=== PATIENT | male | born 1935 | race Caucasian/White ===

== ENCOUNTER 2017-07-28 07:12 | Day surgery (SDC) | payer MEDICARE, BC ==
[2017-07-26 15:16] VITALS: BMI 33.2
[~2017-07-28 07:12] MED LIST: LACTATED RINGERS 1,000 ML IV SCH; LIDOCAINE 1% 20 ML VIAL (10MG/ML) FOR IV START INTRADERMA PRN
[2017-07-28 07:51] VITALS: RESP 18; TEMP 97
[2017-07-28 07:52] LABS: Glucose,Whole Blood 85 mg/dL (75-99)
[2017-07-28] MEDS ORDERED: LACTATED RINGERS 1,000 ML IV ONE (07:52)
[2017-07-28] MEDS ORDERED: PROPOFOL 10 MG/ML 20 ML VIAL IV ONE (08:02)
[2017-07-28] MEDS ORDERED: LIDOCAINE 1% INJ 10MG/ML (20 ML MDV) ONE (08:02)
--- NOTE | 2017-07-28 08:34 | P.PCN ---
Date of Procedure: 07/28/17 Procedure(s) Performed: Brief history: Patient is a pleasant 82-year-old white male scheduled for an elective upper endoscopy as well as colonoscopy as a part of evaluation of abdominal pain, Hemoccult positive stool and change in bowel habits. He also has prior history of colon polyps. Procedure performed: Esophagogastroduodenoscopy and biopsy Colonoscopy with snare polypectomy Preoperative diagnosis: Abdominal pain, change in bowel habits And history of colon polyps Anesthesia: MAC Procedure: After informed consent was obtained from the patient was brought into the endoscopy unit and IV sedation was administered by anesthesia under continuous monitoring. Initially upper endoscopy was done. The Olympus GF 160 video endoscope was inserted inserted into the mouth and esophagus intubated without any difficulty and was gradually advanced into the stomach and duodenum and carefully examined. The bulb and second part of the duodenum appeared normal. The scope was then withdrawn into the stomach adequately insufflated with air and upon careful examination the antrum had mild gastritis and biopsies were done from this area. There were multiple polyps noted in the gastric body measuring 5 mm in sizes which where biopsied. The rest of the body, cardia and fundus appeared normal. The scope was then withdrawn into the esophagus. The GE junction was located at 40 cm to the incisors. It appeared regular with no erythema erosions or ulcerations. Rest of the esophagus appeared normal. Patient tolerated the procedure well. At this time the patient continued to remain sedation. Initial digital rectal examination was normal. Olympus CF 160 video colonoscope was then inserted into the rectum and gradually advanced to the cecum without any difficulty. Careful examination was performed as the scope was gradually being withdrawn. The prep was excellent. The cecum, appeared normal. In the setting colon there was a 5 mm polyp removed by snare polypectomy. The transverse colon there were total of 5 polyps measuring between 5 mm to 7 mm in size removed by snare polypectomy. In the descending colon there was a 5 mm polyp removed by snare polypectomy. The rest of the ascending colon, transverse colon, descending colon, sigmoid colon and rectum appeared normal. Moderate left sided diverticulosis seen. Retroflexion was performed in the rectum and no lesions were noted. Patient tolerated the procedure well. Impression: 1. Upper endoscopy revealed mild antral gastritis and gastric polyps. 2. Colonoscopy revealed: a) 5 mm ascending colon polyp status post polypectomy b) 5 polyps in the transverse colon measuring between 5 mm to 7 mm status post polypectomy c) 5 mm sigmoid colon polyp serous was snare polypectomy d) moderate left-sided diverticulosis. Recommendations: Findings of this examination were discussed with the patient as well as his family. He was advised to follow with the biopsy results. If the biopsy shows tubular adenoma, he can have a repeat colonoscopy in 3 years
[2017-07-28 08:36] VITALS: PULSE 60
[2017-07-28 08:52] VITALS: BP 112/67
== END 2017-07-28 09:41 | disposition home or self-care (01) ==
LOC: ORWHC2ENDO 07:12
PROVIDERS: ATTEND Internal Medicine Gastroenterology
DX: K29.50 Unspecified chronic gastritis without bleeding (principal); D12.3 Benign neoplasm of transverse colon; K31.7 Polyp of stomach and duodenum; K63.5 Polyp of colon; K57.30 Diverticulosis of large intestine without perforation or abscess without bleeding; K21.9 Gastro-esophageal reflux disease without esophagitis; I25.10 Atherosclerotic heart disease of native coronary artery without angina pectoris; I10 Essential (primary) hypertension; I49.9 Cardiac arrhythmia, unspecified; I48.91 Unspecified atrial fibrillation; Z79.01 Long term (current) use of anticoagulants; I25.2 Old myocardial infarction; E78.5 Hyperlipidemia, unspecified; E11.9 Type 2 diabetes mellitus without complications; Z79.84 Long term (current) use of oral hypoglycemic drugs; Z79.891 Long term (current) use of opiate analgesic; Z79.899 Other long term (current) drug therapy
CPT/HCPCS: 88305; 88342; 45385; 43239; J2001; J2704

== ENCOUNTER → 2017-11-19 | Outpatient (CLI) | payer MEDICARE, BC ==
--- NOTE | 2017-11-19 11:38 | CT ---
EXAMINATION TYPE: CT lumbar spine wo con DATE OF EXAM: 11/19/2017 11:10 AM COMPARISON: NONE HISTORY: Low back pain CT DLP: 1221.6 mGycm Automated exposure control for dose reduction was used. Unenhanced CT of the lumbar spine was performed. Bone and soft tissue window settings are submitted as well as coronal and sagittal reconstructions. FINDINGS: The lumbar vertebral bodies maintain normal vertebral body heights. Grade 1 anterolisthesis of L5 and S1 is seen without pars interarticularis defects, likely degenerative in nature. Moderate multilevel degenerative disc disease is seen with bridging anterior osteophytes, facet arthropathy, interverteb ral disc space narrowing, and endplate sclerosis. No evidence of acute fracture or malalignment. Mild fusiform ectasia of the infrarenal abdominal aorta without aneurysm is seen at the level of the L3-L4 intervertebral disc space. This measures 2.5 x 2.5 x 2.4 cm in transverse by anterior posterior by craniocaudal dimension. Moderate calcific atheromatous changes are seen of the abdominal aorta an d its branches. Asymmetric moderate left greater than right sacroiliac joint sclerosis is also seen, likely degenerative in nature. L1-L2: Mild facet arthropathy is seen. There is a broad-based disc bulge without significant spinal c anal stenosis or neural foraminal narrowing. L2-L3: There is a broad-based disc bulge, facet arthropathy, and ligamentum flavum buckling creating moderate bilateral neural foraminal narrowing and mild spinal canal stenosis. L3-L4: There is a large broad-based disc bulge, facet arthropathy, and ligamentum flavum buckling yazmin t create moderate to severe bilateral neural foraminal narrowing, left greater than right, and modera te spinal canal stenosis. L4-L5: There is a large broad-based disc bulge, facet arthropathy, and ligamentum flavum buckling yazmin t create severe spinal canal stenosis and moderate to severe bilateral neural foraminal narrowing. L5-S1: There is disc uncovering secondary to the anterolisthesis of L5 on S1. There is also a broad-b ased disc bulge and facet arthropathy that result in moderate to severe bilateral neural foraminal na rrowing and mild spinal canal stenosis. IMPRESSION: 1. No evidence of acute fracture of the lumbar spine. 2. Grade 1 anterolisthesis of L5 on S1, likely degenerative in nature without pars interarticularis d efects. 3. Moderate to severe degenerative disc disease of the lumbar spine resulting in multilevel spinal ca nal stenosis in variable degrees of neural foraminal narrowing as described above. Note evaluation of disc herniation is limited on CT and could be evaluated with MRI if clinically indicated. 4. Fusiform infrarenal abdominal aortic ectasia without aneurysm measuring up to 2.5 cm.
== END | disposition home or self-care (01) ==
LOC: RADCTMAIN 10:38
PROVIDERS: ATTEND Physical Medicine & Rehabilitation
DX: M48.061 Spinal stenosis, lumbar region without neurogenic claudication (principal); M99.73 Connective tissue and disc stenosis of intervertebral foramina of lumbar region; M43.17 Spondylolisthesis, lumbosacral region; M51.37 Other intervertebral disc degeneration, lumbosacral region; G60.9 Hereditary and idiopathic neuropathy, unspecified; E11.9 Type 2 diabetes mellitus without complications; Z79.01 Long term (current) use of anticoagulants; Z95.0 Presence of cardiac pacemaker
CPT/HCPCS: 72131

== ENCOUNTER → 2017-12-13 | Outpatient (CLI) | payer MEDICARE, BC ==
[2017-12-13 09:34] LABS: INR 1.2 (<1.2); Partial Thromboplastin Time 25.7 sec (22.0-30.0); Prothrombin Time 11.8 sec (9.0-12.0)
== END | disposition home or self-care (01) ==
LOC: LABWHC1 08:57
PROVIDERS: ATTEND Physical Medicine & Rehabilitation
DX: M54.5 Low back pain (principal); G60.9 Hereditary and idiopathic neuropathy, unspecified; M47.817 Spondylosis without myelopathy or radiculopathy, lumbosacral region; M43.16 Spondylolisthesis, lumbar region; M48.062 Spinal stenosis, lumbar region with neurogenic claudication; R20.2 Paresthesia of skin; M54.16 Radiculopathy, lumbar region; E11.9 Type 2 diabetes mellitus without complications; Z79.01 Long term (current) use of anticoagulants; Z95.0 Presence of cardiac pacemaker
CPT/HCPCS: 36415; 85610; 85730

== ENCOUNTER → 2018-03-04 | Outpatient (CLI) | payer MEDICARE, BC ==
[2018-03-04 13:03] LABS: HCT 42.6 % (39.0-53.0); HGB 13.6 gm/dL (13.0-17.5); Hypochromasia Slight; MCH 30.4 pg (25.0-35.0); Platelet Count 292 k/uL (150-450); RBC 4.48 m/uL (4.30-5.90); RDW 13.8 % (11.5-15.5); WBC 9.2 k/uL (3.8-10.6)
--- NOTE | 2018-03-04 13:04 | XR ---
EXAMINATION TYPE: XR chest 2V DATE OF EXAM: 03/04/2018 COMPARISON: 10/10/2014 TECHNIQUE: PA and lateral views submitted. HISTORY: Soreness of breath FINDINGS: The lungs are clear and there is no pneumothorax, pleural effusion, or focal pneumonia. Cardia tosha ly and cardiac device seen with postoperative changes. Arthropathy of the shoulders. Coarsened inters titium noted. Degenerative and hypertrophic change of the spine. IMPRESSION: 1. 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
[2018-03-04 13:15] LABS: Albumin 4.2 g/dL (3.5-5.0); Calcium 9.4 mg/dL (8.4-10.2); Potassium 4.7 mmol/L (3.5-5.1); Total Bilirubin 0.9 mg/dL (0.2-1.3); Total Protein 6.8 g/dL (6.3-8.2)
== END | disposition home or self-care (01) ==
LOC: RADXRMAIN 12:17
PROVIDERS: ATTEND Internal Medicine Cardiovascular Disease
DX: J44.9 Chronic obstructive pulmonary disease, unspecified (principal); J98.4 Other disorders of lung; J84.10 Pulmonary fibrosis, unspecified; I11.9 Hypertensive heart disease without heart failure
CPT/HCPCS: 36415; 71046; 80053; 83880; 85027

== ENCOUNTER → 2018-03-29 | Outpatient (CLI) | payer MEDICARE, BC ==
--- NOTE | 2018-03-29 12:01 | CT ---
EXAMINATION TYPE: CT chest wo con DATE OF EXAM: 03/29/2018 COMPARISON: NONE HISTORY: Shortness of breath CT DLP: 657 mGycm, Automated exposure control for dose reduction was used. CONTRAST: Performed injected with 0 mL of Isovue 300. TECHNIQUE: Axial images were obtained at 5 mm thick sections. Reconstructed images are reviewed on [employer] computer in the coronal plane. FINDINGS: Portion of the thyroid visualized is normal. Groundglass opacities are present throughout the lung nazario. Multiple emphysematous blebs and bulla are present. There is a 1.3 cm pretracheal lymph node. Smaller shotty lymphadenopathy is present. Peribronchial l ymphadenopathy is present measuring 1.0 cm. Subcarinal adenopathy is present the largest measuring 1. 2 cm. Note is made of coronary artery calcification. The ascending aorta diameter at the level of the main pulmonary artery is 4.1 cm. The main pulmonary artery diameter at the bifurcation is 3.[address] sections are obtained through the upper abdomen. Abdomen is essentially unremarkable. Ther e appears to be some vascular calcification within the renal arteries. IMPRESSIONS: 1. Groundglass opacities throughout the lung nazario with extensive emphysematous changes present. Con section leader some mild pulmonary edema present. 2. Multiple enlarged mediastinal lymph nodes. Consider additional workup.
== END | disposition home or self-care (01) ==
LOC: RADCTMAIN 06:50
PROVIDERS: ATTEND Internal Medicine Pulmonary Disease
DX: J43.9 Emphysema, unspecified (principal); R91.8 Other nonspecific abnormal finding of lung field; R59.0 Localized enlarged lymph nodes
CPT/HCPCS: 71250

== ENCOUNTER → 2018-05-09 | Outpatient (CLI) | payer MEDICARE, BC ==
[2018-05-09 09:50] LABS: INR 1.2 (<1.2); Prothrombin Time 11.8 sec (9.0-12.0)
== END | disposition home or self-care (01) ==
LOC: LABWHC1 08:58
PROVIDERS: ATTEND Physical Medicine & Rehabilitation
DX: E11.9 Type 2 diabetes mellitus without complications (principal); I10 Essential (primary) hypertension; G60.9 Hereditary and idiopathic neuropathy, unspecified; Z51.81 Encounter for therapeutic drug level monitoring; Z79.01 Long term (current) use of anticoagulants
CPT/HCPCS: 36415; 85610

== ENCOUNTER → 2018-06-06 | Outpatient (CLI) | payer MEDICARE, BC ==
[2018-06-06 09:38] LABS: INR 1.3 (<1.2); Partial Thromboplastin Time 26.3 sec (22.0-30.0); Prothrombin Time 12.5 sec (9.0-12.0)
== END | disposition home or self-care (01) ==
LOC: LABWHC1 08:47
PROVIDERS: ATTEND Physical Medicine & Rehabilitation
DX: Z01.812 Encounter for preprocedural laboratory examination (principal); M54.5 Low back pain; G60.9 Hereditary and idiopathic neuropathy, unspecified; M48.062 Spinal stenosis, lumbar region with neurogenic claudication; M43.16 Spondylolisthesis, lumbar region; M47.27 Other spondylosis with radiculopathy, lumbosacral region; E11.9 Type 2 diabetes mellitus without complications; M16.0 Bilateral primary osteoarthritis of hip; M54.2 Cervicalgia; M43.12 Spondylolisthesis, cervical region; M47.812 Spondylosis without myelopathy or radiculopathy, cervical region; Z79.01 Long term (current) use of anticoagulants
CPT/HCPCS: 36415; 85610; 85730

== ENCOUNTER 2018-06-13 01:45 | Emergency (ER) | payer MEDICARE, BC ==
--- NOTE | 2018-06-13 03:05 | ED ---
Arrhythmia/Palpitations HPI - General Chief Complaint: Recheck/Abnormal Lab/Rx Stated Complaint: PACEMAKER ISSUE Time Seen by Provider: 06/13/18 02:11 Source: patient Mode of arrival: ambulatory Limitations: physical limitation - History of Present Illness Initial Comments: This patient is an 83-year-old man who presents because he has been feeling his pacer activate. Patient states he has history of an atrial rhythm, and had a pacer placed. He states that he has not been having issues with atrial rhythm but has felt his pacer cake in a number of times in the past hour. He denies chest pain, dyspnea, diaphoresis, nausea or vomiting in association. He had not noted any symptoms of infection. He states that he had been feeling pretty much his usual self through the previous day. MD Complaint: rapid heart beat Onset/Timin -: hour(s) Context: occurred during rest Arrhythmia History: atrial fibrillation, pacemaker Associated Symptoms: denies other symptoms - Related Data Home Medications Medication Instructions Recorded Confirmed Aspirin 81 mg PO HS 06/13/14 07/28/17 Cholecalciferol [Vitamin D3] 2,000 unit PO DAILY 06/13/14 07/28/17 Hydrocodone/Acetaminophen [[place] 1 tab PO Q6H PRN 06/13/14 07/26/17 5-325] Omeprazole [PriLOSEC] 20 mg PO AC-BRKFST 06/13/14 07/28/17 Potassium Chloride [Klor-Con 20] 20 meq PO DAILY 06/13/14 07/28/17 Simvastatin [Zocor] 40 mg PO HS 06/13/14 07/28/17 metFORMIN HCL [metFORMIN HCL ER] 1,000 mg PO DAILY 06/13/14 07/28/17 Warfarin [Coumadin] 2.5 mg PO HS 10/08/16 07/28/17 rOPINIRole HCL [Requip] 1 mg PO HS 10/08/16 07/28/17 Meclizine [Antivert] 25 mg PO QID 07/26/17 07/28/17 Metoprolol Tartrate 25 mg PO DAILY 07/26/17 07/28/17 traMADol HCL [Ultram] 50 mg PO Q4HR PRN 07/26/17 07/26/17 Allergies Allergy/AdvReac Type Severity Reaction Status Date / Time Penicillins Allergy Swelling Verified 07/28/17 08:00 Review of Systems ROS Statement: Those systems with pertinent positive or pertinent negative responses have been documented in the HPI. ROS Other: All systems not noted in ROS Statement are negative. Constitutional: Denies: fever, chills, weakness Eyes: Denies: vision change Respiratory: Denies: cough, dyspnea Cardiovascular: Reports: palpitations. Denies: chest pain, edema, syncope Gastrointestinal: Denies: abdominal pain, nausea, vomiting Musculoskeletal: Denies: back pain Skin: Denies: rash Neurological: Denies: headache, weakness, numbness Past Medical History Past Medical History: Atrial Fibrillation, Asthma, Coronary Artery Disease (CAD) , Diabetes Mellitus, Deep Vein Thrombosis (DVT), Eye Disorder, GERD/Reflux, Hyperlipidemia, Hypertension, Myocardial Infarction (NH), Osteoarthritis (OA) Additional Past Medical History / Comment(s): ASTHMA CHILD. Chronic back pain. HX KIDNEY STONE X1. NEUROPATHY IN FEET. SPINAL STENOSIS L3-5. RLS. RECENT POS BLOOD IN STOOLS ON EXAM. HAS PACEMAKER. STATES, "HAS LEADS LEFT IN CHEST, [address] DIA STATES HE COULDN'T HAVE HAD A DVT D/T USE OF WARFARIN. BEING TREATED FOR DETACHED LT RETINA. Last Myocardial Infarction Date:: 2003 History of Any Multi-Drug Resistant Organisms: None Reported Past Surgical History: Appendectomy, Coronary Bypass/CABG, Heart Catheterization , Orthopedic Surgery, Pacemaker Additional Past Surgical History / Comment(s): CARDIOVERSION. ORAL SURGERY. TRIPLE BYPASS. CATARACTS. RT KNEE ARTHROSCOPY. BACK INJECTIONS AT [facility] epidural for pain control Past Anesthesia/Blood Transfusion Reactions: No Reported Reaction Type of Cardiac Device: Permanent Pacemaker Device Placement Date:: UNKNOWN Past Psychological History: No Psychological Hx Reported Smoking Status: Former smoker Past Alcohol Use History: Occasional Past Drug Use History: None Reported - Past Family History Father Family Medical History: Congestive Heart Failure (CHF) Additional Family Medical History / Comment(s): AT AGE 83-CHF Mother Family Medical History: Dementia Additional Family Medical History / Comment(s): MOM AGE 94 -[place] General Exam Limitations: physical limitation General appearance: alert, in no apparent distress Head exam: Present: atraumatic, normocephalic Eye exam: Present: normal appearance. Absent: scleral icterus, conjunctival injection ENT exam: Present: normal oropharynx Neck exam: Present: normal inspection Respiratory exam: Present: normal lung sounds bilaterally. Absent: respiratory distress, wheezes, rales, rhonchi, stridor Cardiovascular Exam: Present: regular rate, normal rhythm, normal heart sounds. Absent: systolic murmur, diastolic murmur, rubs, gallop GI/Abdominal exam: Present: soft. Absent: distended, tenderness, guarding, rebound, rigid, mass Extremities exam: Present: normal inspection, normal capillary refill. Absent: pedal edema, calf tenderness Neurological exam: Present: alert Skin exam: Present: warm, dry, intact, normal color. Absent: rash Course Vital Signs 06/13/18 06/13/18 06/13/18 01:47 01:53 04:59 Temperature 98.6 F 97.8 F Pulse Rate 62 60 60 Respiratory 17 16 19 Rate Blood Pressure 139/72 138/63 140/64 O2 Sat by Pulse 96 98 95 Oximetry EKG Findings - EKG Comments: EKG Findings:: The patient's 12-lead ECG shows what appears to be a ventricular paced rhythm with a rate of 61 bpm. - EKG Results: EKG: interpreted by ASYA Medical Decision Making - Medical Decision Making Patient is an 83-year-old man who has been noting his pacer working. The device was interrogated and does indicate that it has been firing in response to a rapid atrial rhythm 4 times over the past hour. I discussed admitting the patient to have him seen by cardiology. Patient states that he is otherwise feeling well and since she has been here has not been having episodes. He would prefer to go home and states she will follow up today with the balance staff staker in the clinic. I did discuss return parameters and appropriate follow-up. All questions answered. - Lab Data Result diagrams: 06/13/18 03:35 06/13/18 03:35 Lab Results 06/13/18 06/13/18 06/13/18 Range/Units 03:35 03:35 03:35 WBC 9.2 (3.8-10.6) k/uL RBC 4.34 (4.30-5.90) m/uL Hgb 12.6 L (13.0-17.5) gm/dL Hct 40.0 (39.0-53.0) % MCV 92.3 (80.0-100.0) fL MCH 29.0 (25.0-35.0) pg MCHC 31.4 (31.0-37.0) g/dL RDW 14.5 (11.5-15.5) % Plt Count 225 (150-450) k/uL Neutrophils % 70 % Lymphocytes % 19 % Monocytes % 7 % Eosinophils % 3 % Basophils % 0 % Neutrophils # 6.4 (1.3-7.7) k/uL Lymphocytes # 1.7 (1.0-4.8) k/uL Monocytes # 0.6 (0-1.0) k/uL Eosinophils # 0.3 (0-0.7) k/uL Basophils # 0.0 (0-0.2) k/uL PT (9.0-12.0) sec INR (<1.2) APTT (22.0-30.0) sec Sodium 138 (137-145) mmol/L Potassium 4.5 (3.5-5.1) mmol/L Chloride 106 (98-107) mmol/L Carbon Dioxide 26 (22-30) mmol/L Anion Gap 6 mmol/L BUN 21 H (9-20) mg/dL Creatinine 1.10 (0.66-1.25) mg/dL Est GFR (CKD-EPI)AfAm 72 (>60 ml/min/1.73 sqM) Est GFR (CKD-EPI)NonAf 62 (>60 ml/min/1.73 sqM) Glucose 159 H (74-99) mg/dL Calcium 9.3 (8.4-10.2) mg/dL Magnesium 1.9 (1.6-2.3) mg/dL Total Bilirubin 0.5 (0.2-1.3) mg/dL AST 31 (17-59) U/L ALT 35 (21-72) U/L Alkaline Phosphatase 64 (38-126) U/L Total Creatine Kinase 59 (55-170) U/L CK-MB (CK-2) 1.6 (0.0-2.4) ng/mL CK-MB (CK-2) Rel Index 2.7 Troponin I <0.012 (0.000-0.034) ng/mL Total Protein 6.2 L (6.3-8.2) g/dL Albumin 3.7 (3.5-5.0) g/dL 06/13/18 Range/Units 03:35 WBC (3.8-10.6) k/uL RBC (4.30-5.90) m/uL Hgb (13.0-17.5) gm/dL Hct (39.0-53.0) % MCV (80.0-100.0) fL MCH (25.0-35.0) pg MCHC (31.0-37.0) g/dL RDW (11.5-15.5) % Plt Count (150-450) k/uL Neutrophils % % Lymphocytes % % Monocytes % % Eosinophils % % Basophils % % Neutrophils # (1.3-7.7) k/uL Lymphocytes # (1.0-4.8) k/uL Monocytes # (0-1.0) k/uL Eosinophils # (0-0.7) k/uL Basophils # (0-0.2) k/uL PT 16.0 H (9.0-12.0) sec INR 1.7 H (<1.2) APTT 28.1 (22.0-30.0) sec Sodium (137-145) mmol/L Potassium (3.5-5.1) mmol/L Chloride (98-107) mmol/L Carbon Dioxide (22-30) mmol/L Anion Gap mmol/L BUN (9-20) mg/dL Creatinine (0.66-1.25) mg/dL Est GFR (CKD-EPI)AfAm (>60 ml/min/1.73 sqM) Est GFR (CKD-EPI)NonAf (>60 ml/min/1.73 sqM) Glucose (74-99) mg/dL Calcium (8.4-10.2) mg/dL Magnesium (1.6-2.3) mg/dL Total Bilirubin (0.2-1.3) mg/dL AST (17-59) U/L ALT (21-72) U/L Alkaline Phosphatase (38-126) U/L Total Creatine Kinase (55-170) U/L CK-MB (CK-2) (0.0-2.4) ng/mL CK-MB (CK-2) Rel Index Troponin I (0.000-0.034) ng/mL Total Protein (6.3-8.2) g/dL Albumin (3.5-5.0) g/dL Disposition Clinical Impression: Pacemaker reprogramming/check Disposition: HOME SELF-CARE Condition: Good Instructions: Tachycardia (ED) Is patient prescribed a controlled substance at d/c from ED?: No Referrals: Thong Roman MD [Primary Care Provider] - 1-2 days Luz Dia MD [STAFF PHYSICIAN] - 1-2 days
[2018-06-13 03:42] LABS: Basophils % (A) 0 %; Eosinophils # (A) 0.3 k/uL (0-0.7); Eosinophils % (A) 3 %; HGB 12.6 gm/dL (13.0-17.5); Lymphocytes # (A) 1.7 k/uL (1.0-4.8); Lymphocytes % (A) 19 %; MCHC 31.4 g/dL (31.0-37.0); MCV 92.3 fL (80.0-100.0); Mean Platelet Volume 7.1; Monocytes # (A) 0.6 k/uL (0-1.0); Monocytes % (A) 7 %; Neutrophils # (A) 6.4 k/uL (1.3-7.7); Neutrophils % (A) 70 %; Platelet Count 225 k/uL (150-450); RBC 4.34 m/uL (4.30-5.90); RDW 14.5 % (11.5-15.5); WBC 9.2 k/uL (3.8-10.6)
[2018-06-13 03:48] VITALS: PULSE 60
[2018-06-13 03:52] LABS: Albumin 3.7 g/dL (3.5-5.0); Calcium 9.3 mg/dL (8.4-10.2); Magnesium 1.9 mg/dL (1.6-2.3); Potassium 4.5 mmol/L (3.5-5.1); Total Bilirubin 0.5 mg/dL (0.2-1.3); Total Protein 6.2 g/dL (6.3-8.2)
[2018-06-13 03:55] LABS: INR 1.7 (<1.2); Partial Thromboplastin Time 28.1 sec (22.0-30.0)
[2018-06-13 04:03] LABS: Creatine Kinase 59 U/L (55-170)
[2018-06-13 04:16] LABS: Creatine Kinase MB 1.6 ng/mL (0.0-2.4); Troponin I <0.012 ng/mL (0.000-0.034)
[2018-06-13 05:18] VITALS: BP 140/64; RESP 19; TEMP 97.8
== END 2018-06-13 04:59 | disposition home or self-care (01) ==
LOC: EC 01:45
DX: Z45.010 Encounter for checking and testing of cardiac pacemaker pulse generator [battery] (principal); I48.92 Unspecified atrial flutter; I25.10 Atherosclerotic heart disease of native coronary artery without angina pectoris; E11.9 Type 2 diabetes mellitus without complications; K21.9 Gastro-esophageal reflux disease without esophagitis; E78.5 Hyperlipidemia, unspecified; I10 Essential (primary) hypertension; I25.2 Old myocardial infarction; Z86.718 Personal history of other venous thrombosis and embolism; Z87.891 Personal history of nicotine dependence; Z79.01 Long term (current) use of anticoagulants; Z79.84 Long term (current) use of oral hypoglycemic drugs; Z79.899 Other long term (current) drug therapy; Z88.0 Allergy status to penicillin; Z95.1 Presence of aortocoronary bypass graft; Z95.818 Presence of other cardiac implants and grafts; Z95.0 Presence of cardiac pacemaker; Z82.49 Family history of ischemic heart disease and other diseases of the circulatory system
CPT/HCPCS: 36415; 80053; 82550; 82553; 83735; 84484; 85025; 85610; 85730; 93005; 99283

== ENCOUNTER → 2018-07-25 | Outpatient (CLI) | payer MEDICARE, BC ==
[2018-07-25 11:05] LABS: INR 1.3 (<1.2); Partial Thromboplastin Time 27.2 sec (22.0-30.0); Prothrombin Time 12.1 sec (9.0-12.0)
== END | disposition home or self-care (01) ==
LOC: LABWHC1 09:39
PROVIDERS: ATTEND Physical Medicine & Rehabilitation
DX: Z51.81 Encounter for therapeutic drug level monitoring (principal); Z79.01 Long term (current) use of anticoagulants
CPT/HCPCS: 36415; 85610; 85730

== ENCOUNTER → 2018-08-22 | Outpatient (CLI) | payer MEDICARE, BC ==
[2018-08-22 10:37] LABS: INR 1.2 (<1.2); Prothrombin Time 11.6 sec (9.0-12.0)
== END ==
LOC: LABWHC1 08:45
PROVIDERS: ATTEND Physical Medicine & Rehabilitation
DX: Z51.81 Encounter for therapeutic drug level monitoring (principal); Z79.01 Long term (current) use of anticoagulants
CPT/HCPCS: 36415; 85610

== ENCOUNTER 2018-09-10 02:43 | Emergency (ER) | payer MEDICARE, BC ==
[2018-09-10] MEDS ORDERED: HYDROcodone/APAP 5-325MG 1 EACH TAB PO STA (03:18)
--- NOTE | 2018-09-10 03:58 | CT ---
EXAMINATION TYPE: CT lumbar spine wo con DATE OF EXAM: 09/10/2018 3:52 AM COMPARISON: 11/19/2017 HISTORY: left hip pain CT DLP: 1334 mGycm Automated exposure control for dose reduction was used. Unenhanced CT of the lumbar spine was performed. Bone and soft tissue window settings are submitted as well as coronal and sagittal reconstructions. Lumbar vertebra show fairly normal alignment. There is hypertrophic spur formation anteriorly through out the lumbar spine. There are large anterior bridging osteophytes from L1 to L4 4. The facet joints appear intact. There is no compression fracture. There is severe bony spinal stenosis at L3-4 due to facet arthropathy and disc bulging. There is similar change at L4-5. There is mild spinal stenosis a t the other levels. I see no focal bone destruction. Sacroiliac joints appear intact. There is no lum bar paraspinal mass. IMPRESSION: Multilevel spondylotic changes. Severe bony spinal stenosis at L3-4 L4-5. No fracture seen. No signif icant change compared to old exam.
--- NOTE | 2018-09-10 04:01 | CT ---
EXAMINATION TYPE: CT hip LT wo con DATE OF EXAM: 09/10/2018 COMPARISON: None HISTORY: left hip pain CT DLP: 561 mGycm Automated exposure control for dose reduction was used. FINDINGS: There is hypertrophic spurring of the femoral head. Acetabulum appears intact. I see no fracture. The re is some spurring of the acetabulum. There is slight narrowing of the hip joint space. IMPRESSION: MILD HYPERTROPHIC OSTEOARTHRITIS. NO FRACTURE SEEN.
--- NOTE | 2018-09-10 04:18 | ED ---
General Adult HPI - General Chief complaint: Extremity Problem,Nontraumatic Stated complaint: L Hip Pain Time Seen by Provider: 09/10/18 02:55 Source: patient, RN notes reviewed Mode of arrival: wheelchair Limitations: physical limitation - History of Present Illness Initial comments: 83-year-old male presents to the emergency department for a chief complaint of left lower extremity pain 2 days. He states this pain is been on and off for several months but worsened in the past 2 days. Describes the pain as a dull pain extending from his left hip down to his left foot. He states the pain is worse when he lies down and better when he sits or stands. Patient states he has spinal stenosis that he is currently seeing an orthopedic surgeon for. He states he has had multiple procedures including nerve blocks for this. He states this is similar to past pain but is somewhat worse. He denies bladder or bowel changes. He denies saddle anesthesia. He denies fevers or chills. He states he has tramadol and Pima at home but is currently only taking the tramadol. He denies any falls. Patient has no other complaints at this time including shortness of breath, chest pain, abdominal pain, nausea or vomiting, headache, or visual changes. - Related Data Home Medications Medication Instructions Recorded Confirmed Aspirin 81 mg PO HS 06/13/14 07/28/17 Cholecalciferol [Vitamin D3] 2,000 unit PO DAILY 06/13/14 07/28/17 Hydrocodone/Acetaminophen [Pima 1 tab PO Q6H PRN 06/13/14 07/26/17 5-325] Omeprazole [PriLOSEC] 20 mg PO AC-BRKFST 06/13/14 07/28/17 Potassium Chloride [Klor-Con 20] 20 meq PO DAILY 06/13/14 07/28/17 Simvastatin [Zocor] 40 mg PO HS 06/13/14 07/28/17 metFORMIN HCL [metFORMIN HCL ER] 1,000 mg PO DAILY 06/13/14 07/28/17 Warfarin [Coumadin] 2.5 mg PO HS 10/08/16 07/28/17 rOPINIRole HCL [Requip] 1 mg PO HS 10/08/16 07/28/17 Meclizine [Antivert] 25 mg PO QID 07/26/17 07/28/17 Metoprolol Tartrate 25 mg PO DAILY 07/26/17 07/28/17 traMADol HCL [Ultram] 50 mg PO Q4HR PRN 07/26/17 07/26/17 Allergies Allergy/AdvReac Type Severity Reaction Status Date / Time Penicillins Allergy Swelling Verified 09/10/18 02:52 Review of Systems ROS Statement: Those systems with pertinent positive or pertinent negative responses have been documented in the HPI. ROS Other: All systems not noted in ROS Statement are negative. Past Medical History Past Medical History: Atrial Fibrillation, Asthma, Coronary Artery Disease (CAD) , Diabetes Mellitus, Deep Vein Thrombosis (DVT), Eye Disorder, GERD/Reflux, Hyperlipidemia, Hypertension, Myocardial Infarction ([place]), Osteoarthritis (OA) Additional Past Medical History / Comment(s): ASTHMA CHILD. Chronic back pain. HX KIDNEY STONE X1. NEUROPATHY IN FEET. SPINAL STENOSIS L3-5. RLS. RECENT POS BLOOD IN STOOLS ON EXAM. HAS PACEMAKER. STATES, "HAS LEADS LEFT IN CHEST, [address] GONZALES STATES HE COULDN'T HAVE HAD A DVT D/T USE OF WARFARIN. BEING TREATED FOR DETACHED LT RETINA. Last Myocardial Infarction Date:: 2003 History of Any Multi-Drug Resistant Organisms: None Reported Past Surgical History: Appendectomy, Coronary Bypass/CABG, Heart Catheterization , Orthopedic Surgery, Pacemaker Additional Past Surgical History / Comment(s): CARDIOVERSION. ORAL SURGERY. TRIPLE BYPASS. CATARACTS. RT KNEE ARTHROSCOPY. BACK [facility]JE[facility] AT [facility] epidural for pain control Past Anesthesia/Blood Transfusion Reactions: No Reported Reaction Type of Cardiac Device: Permanent Pacemaker Device Placement Date:: UNKNOWN Past Psychological History: No Psychological Hx Reported Smoking Status: Former smoker Past Alcohol Use History: Rare Past Drug Use History: None Reported - Past Family History Father Family Medical History: Congestive Heart Failure (CHF) Additional Family Medical History / Comment(s): AT AGE 83-CHF Mother Family Medical History: Dementia Additional Family Medical History / Comment(s): MOM AGE 94 -[place]ERS General Exam Limitations: physical limitation General appearance: alert, in no apparent distress Head exam: Present: atraumatic, normocephalic, normal inspection Eye exam: Present: normal appearance, PERRL, EOMI. Absent: scleral icterus, conjunctival injection, periorbital swelling ENT exam: Present: normal exam, mucous membranes moist Neck exam: Present: normal inspection, full ROM. Absent: tenderness, meningismus, lymphadenopathy Respiratory exam: Present: normal lung sounds bilaterally. Absent: respiratory distress, wheezes, rales, rhonchi, stridor Cardiovascular Exam: Present: regular rate, normal rhythm, normal heart sounds. Absent: systolic murmur, diastolic murmur, rubs, gallop, clicks GI/Abdominal exam: Present: soft, normal bowel sounds. Absent: distended, tenderness, guarding, rebound, rigid Extremities exam: Present: tenderness (Minor tenderness noted to the left buttock and hip area), normal capillary refill (Capillary refill less than 2 seconds and TP pulses 2+ in the left lower extremity), other (Sensation intact in the left lower extremity). Absent: full ROM (90 of flexion to the left hip with full extension.), calf tenderness Neurological exam: Present: alert, oriented X3, CN II-XII intact, normal gait ( Patient is ambulatory in the emergency department) Psychiatric exam: Present: normal affect, normal mood Course Vital Signs 09/10/18 02:48 Temperature 97.6 F Pulse Rate 59 L Respiratory 18 Rate Blood Pressure 159/75 O2 Sat by Pulse 97 Oximetry Medical Decision Making - Medical Decision Making 83-year-old male presents to the emergency department for a chief complaint of left leg pain 2 days. This has been ongoing for months but worsened in the past 2 days. Patient states he has been evaluated and has had multiple procedures for spinal stenosis. He states this is somewhat inconsistent worse. He denies blood or bowel changes or saddle anesthesia. On exam patient does have some limited flexion of the left hip, no lumbar spine tenderness. Neurovascular intact in the left lower extremity. No erythema or signs of infection. Patient is ambulatory in the emergency department. Lumbar spine CT showed multilevel spondylitic changes or severe bony spinal stenosis at L3-L4 and L4 to L5. No fracture seen. No significant change. CT left hip shows mild hypertrophic osteoarthritis without fracture. Discussed with patient possibility of admission for pain management. Patient refuses this and states the Pima here did make him feel better and he would rather go home. He states he is not worried for falls. I discussed with patient to follow up with orthopedics and continue to take Pima as already prescribed at home. Daughter agrees with this. They will return here he has any worsening symptoms or feels as if he can no longer ambulate at home safely. Disposition Clinical Impression: Hip pain, left, Spinal stenosis, Osteoarthritis Disposition: HOME SELF-CARE Condition: Good Instructions: Hip Pain (ED) Additional Instructions: Please take Pima at home for pain. Please follow-up with orthopedics in one to 2 days. Please return to the emergency department if you have any worsening symptoms. Is patient prescribed a controlled substance at d/c from ED?: No Referrals: Thong Roman MD [Primary Care Provider] - 1-2 days Josemanuel Giles DO [Doctor of Osteopathic Medicine] - 1-2 days Time of Disposition: 04:37
[2018-09-10 04:48] VITALS: BP 165/80; PULSE 60; RESP 19; TEMP 98.2
== END 2018-09-10 05:04 | disposition home or self-care (01) ==
LOC: EC 02:43
DX: M16.12 Unilateral primary osteoarthritis, left hip (principal); M48.061 Spinal stenosis, lumbar region without neurogenic claudication; M79.672 Pain in left foot; I48.91 Unspecified atrial fibrillation; E78.5 Hyperlipidemia, unspecified; I10 Essential (primary) hypertension; I25.10 Atherosclerotic heart disease of native coronary artery without angina pectoris; E11.42 Type 2 diabetes mellitus with diabetic polyneuropathy; K21.9 Gastro-esophageal reflux disease without esophagitis; G25.81 Restless legs syndrome; I25.2 Old myocardial infarction; Z87.891 Personal history of nicotine dependence; Z88.0 Allergy status to penicillin; Z79.01 Long term (current) use of anticoagulants; Z79.82 Long term (current) use of aspirin; Z79.84 Long term (current) use of oral hypoglycemic drugs; Z79.899 Other long term (current) drug therapy; Z86.73 Personal history of transient ischemic attack (TIA), and cerebral infarction without residual deficits; Z95.0 Presence of cardiac pacemaker; Z95.1 Presence of aortocoronary bypass graft
CPT/HCPCS: 72131; 99284

== ENCOUNTER → 2018-12-09 | Outpatient (CLI) | payer MEDICARE, BC ==
--- NOTE | 2018-12-09 10:23 | US ---
EXAMINATION TYPE: US venous doppler duplex LE DATE OF EXAM: 12/09/2018 9:33 AM COMPARISON: US 2014 CLINICAL HISTORY: R22.43 Bilateral leg swelling. Bilateral feet and lower leg swelling x 1 week SIDE PERFORMED: Bilateral TECHNIQUE: The lower extremity deep venous system is examined utilizing real time linear array sonog hitesh with graded compression, doppler sonography and color-flow sonography. VESSELS IMAGED: External Iliac Vein (EIV) Common Femoral Vein Deep Femoral Vein Greater Saphenous Vein * Femoral Vein Popliteal Vein Small Saphenous Vein * Proximal Calf Veins (* superficial vessels) Difficult study due to arterial shadowing Grayscale, color doppler, spectral doppler imaging performed of the deep veins of the lower extremiti es. There is normal flow, compressibility, vascular waveforms. Right Leg: Appears negative for DVT Left Leg: Appears negative for DVT, limited visualization of distal femoral vein IMPRESSION: No sonographic evidence of deep venous arthrosis within either lower extremity however t here is limited visualization of the distal femoral vein on the left.
== END | disposition home or self-care (01) ==
LOC: RADUSWWP 08:45
PROVIDERS: ATTEND Family Medicine
DX: R22.43 Localized swelling, mass and lump, lower limb, bilateral (principal); Z88.1 Allergy status to other antibiotic agents; Z88.0 Allergy status to penicillin; Z88.8 Allergy status to other drugs, medicaments and biological substances; Z88.5 Allergy status to narcotic agent
CPT/HCPCS: 93970

== ENCOUNTER 2018-12-25 19:48 | Inpatient (IN) | payer MEDICARE, BC ==
[2018-12-25] MEDS ORDERED: FUROSEMIDE 10 MG/ML 4 ML VIAL IV STA (20:10)
[2018-12-25] MEDS ORDERED: IPRATROPIUM-ALBUTEROL 3 ML NEB INHALATION STA (20:10)
[2018-12-25] MEDS ORDERED: methylPREDNISolone SOD SUCCI 125 MG/2 ML VIAL IV STA (20:10)
[2018-12-25 20:21] LABS: Basophils % (A) 0 %; Eosinophils # (A) 0.3 k/uL (0-0.7); Eosinophils % (A) 3 %; HCT 38.8 % (39.0-53.0); HGB 12.1 gm/dL (13.0-17.5); Hypochromasia Moderate; Lymphocytes # (A) 1.6 k/uL (1.0-4.8); Lymphocytes % (A) 17 %; MCH 29.8 pg (25.0-35.0); MCHC 31.3 g/dL (31.0-37.0); MCV 95.3 fL (80.0-100.0); Mean Platelet Volume 6.9; Monocytes # (A) 0.7 k/uL (0-1.0); Monocytes % (A) 7 %; Neutrophils # (A) 6.9 k/uL (1.3-7.7); Neutrophils % (A) 71 %; Platelet Count 306 k/uL (150-450); RBC 4.07 m/uL (4.30-5.90); RDW 15.6 % (11.5-15.5); WBC 9.8 k/uL (3.8-10.6)
--- NOTE | 2018-12-25 20:25 | ED ---
SOB HPI - General Chief Complaint: Shortness of Breath Stated Complaint: SOB Congestion Time Seen by Provider: 12/25/18 20:01 Source: patient, family, RN notes reviewed Mode of arrival: ambulatory Limitations: no limitations - History of Present Illness Initial Comments: This is a 83-year-old male with a history of CHF COPD bypass surgery in the past COPD and a former smoker who states he had the onset shortness of breath 3 days ago associated progressively worse. He states he has orthopnea and exertional dyspnea. He states he has a cough with whitish phlegm he does say when he eats the phlegm takes on a color the food is eating. He denies any overt fevers chills or sweats he denies any chest pain. He does have increased edema to his lower extremities. He was started on 20 mg of Lasix last week he had been on it in the past. Discussion with the modifying factors. MD Complaint: shortness of breath, cough - Related Data Home Medications Medication Instructions Recorded Confirmed Aspirin 81 mg PO DAILY 06/13/14 12/25/18 Cholecalciferol [Vitamin D3] 2,000 unit PO DAILY 06/13/14 12/25/18 Hydrocodone/Acetaminophen [[place] 1 tab PO Q6H PRN 06/13/14 12/25/18 5-325] Omeprazole [PriLOSEC] 20 mg PO DAILY 06/13/14 12/25/18 Potassium Chloride [Klor-Con 20] 20 meq PO DAILY 06/13/14 12/25/18 Simvastatin [Zocor] 40 mg PO HS 06/13/14 12/25/18 metFORMIN HCL [metFORMIN HCL ER] 1,000 mg PO DAILY 06/13/14 12/25/18 Warfarin [Coumadin] 2.5 mg PO SUMOTH 10/08/16 12/25/18 Meclizine [Antivert] 25 mg PO BID 07/26/17 12/25/18 Metoprolol Tartrate 25 mg PO BID 07/26/17 12/25/18 traMADol HCL [Ultram] 50 mg PO Q6H PRN 07/26/17 12/25/18 Budesonide [Pulmicort] 0.5 mg INHALATION RT-BID PRN 12/25/18 12/25/18 Enalapril [Vasotec] 5 mg PO DIRECTED 12/25/18 12/25/18 Fluticasone Nasal [employer] [Flonase 1 spray EA NOSTRIL BID PRN 12/25/18 12/25/18 Nasal [employer]] Furosemide [Lasix] 20 mg PO DAILY 12/25/18 12/25/18 Gabapentin [Neurontin] 300 mg PO TID 12/25/18 12/25/18 Prednisolone Acetate/Pf 1 drop LEFT EYE BID 12/25/18 12/25/18 [Prednisolone Acet 1% Eye Drop] guaiFENesin 400 mg PO BID PRN 12/25/18 12/25/18 rOPINIRole HCL [Requip] 2 mg PO HS 12/25/18 12/25/18 Allergies Allergy/AdvReac Type Severity Reaction Status Date / Time Penicillins Allergy Swelling Verified 12/25/18 20:18 Review of Systems ROS Statement: Those systems with pertinent positive or pertinent negative responses have been documented in the HPI. ROS Other: All systems not noted in ROS Statement are negative. Past Medical History Past Medical History: Atrial Fibrillation, Asthma, Coronary Artery Disease (CAD) , Diabetes Mellitus, Deep Vein Thrombosis (DVT), Eye Disorder, GERD/Reflux, Hyperlipidemia, Hypertension, Myocardial Infarction ([place]), Osteoarthritis (OA) Additional Past Medical History / Comment(s): ASTHMA CHILD. Chronic back pain. HX KIDNEY STONE X1. NEUROPATHY IN FEET. SPINAL STENOSIS L3-5. RLS. RECENT POS BLOOD IN STOOLS ON EXAM. HAS PACEMAKER. STATES, "HAS LEADS LEFT IN CHEST, [address] GONZALES STATES HE COULDN'T HAVE HAD A DVT D/T USE OF WARFARIN. BEING TREATED FOR DETACHED LT RETINA. Last Myocardial Infarction Date:: 2003 History of Any Multi-Drug Resistant Organisms: None Reported Past Surgical History: Appendectomy, Coronary Bypass/CABG, Heart Catheterization , Orthopedic Surgery, Pacemaker Additional Past Surgical History / Comment(s): CARDIOVERSION. ORAL SURGERY. TRIPLE BYPASS. CATARACTS. RT KNEE ARTHROSCOPY. BACK INJECTIONS AT [facility] epidural for pain control Past Anesthesia/Blood Transfusion Reactions: No Reported Reaction Type of Cardiac Device: Permanent Pacemaker Device Placement Date:: UNKNOWN Past Psychological History: No Psychological Hx Reported Smoking Status: Former smoker Past Alcohol Use History: Rare Past Drug Use History: None Reported - Past Family History Father Family Medical History: Congestive Heart Failure (CHF) Additional Family Medical History / Comment(s): AT AGE 83-CHF Mother Family Medical History: Dementia Additional Family Medical History / Comment(s): MOM AGE 94 -[place] General Exam - General Exam Comments Initial Comments: This is a well-developed well-nourished awake alert oriented times 3 male Limitations: no limitations General appearance: alert, in distress Head exam: Present: atraumatic, normocephalic, normal inspection Eye exam: Present: normal appearance, PERRL, EOMI. Absent: scleral icterus, conjunctival injection, periorbital swelling ENT exam: Present: normal exam, mucous membranes moist Neck exam: Present: normal inspection, other (No stridor JVD or bruits). Absent : tenderness, meningismus, lymphadenopathy Respiratory exam: Present: wheezes, rales, decreased breath sounds. Absent: respiratory distress, rhonchi, stridor Cardiovascular Exam: Present: regular rate, normal rhythm, normal heart sounds. Absent: systolic murmur, diastolic murmur, rubs, gallop, clicks GI/Abdominal exam: Present: soft, normal bowel sounds. Absent: distended, tenderness, guarding, rebound, rigid Extremities exam: Present: full ROM, normal capillary refill, pedal edema, other (stasis dermatitis changes along with the peripheral edema.). Absent: tenderness, joint swelling, calf tenderness Back exam: Present: normal inspection Neurological exam: Present: alert, oriented X3, CN II-XII intact Psychiatric exam: Present: normal affect, normal mood Skin exam: Present: warm, dry, intact, normal color. Absent: rash Course Vital Signs 12/25/18 12/25/18 12/25/18 19:49 20:46 20:52 Temperature 98 F Pulse Rate 71 60 Respiratory 16 16 20 Rate Blood Pressure 111/58 121/74 O2 Sat by Pulse 91 L 97 Oximetry 12/25/18 12/25/18 12/25/18 20:55 21:00 22:00 Temperature Pulse Rate 60 64 60 Respiratory 16 16 18 Rate Blood Pressure 118/57 144/80 O2 Sat by Pulse 97 91 L Oximetry - Reevaluation(s) Reevaluation #1: 12/25/18 22:10 Reevaluation patient reveals minimal improvement thus far with the initial treatment Reevaluation #2: 12/25/18 22:10 Secondary evaluation the patient revealed some improvement he had minimal improvement after the nebulizer treatment. 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 Looking for dysrhythmia. Patient rhythm of 60 and the original monitoring review by me. Medical Decision Making - Lab Data Result diagrams: 12/25/18 20:06 12/25/18 20:06 Lab Results 12/25/18 12/25/18 12/25/18 Range/Units 20:06 20:06 20:06 WBC 9.8 (3.8-10.6) k/uL RBC 4.07 L (4.30-5.90) m/uL Hgb 12.1 L (13.0-17.5) gm/dL Hct 38.8 L (39.0-53.0) % MCV 95.3 (80.0-100.0) fL MCH 29.8 (25.0-35.0) pg MCHC 31.3 (31.0-37.0) g/dL RDW 15.6 H (11.5-15.5) % Plt Count 306 (150-450) k/uL Neutrophils % 71 % Lymphocytes % 17 % Monocytes % 7 % Eosinophils % 3 % Basophils % 0 % Neutrophils # 6.9 (1.3-7.7) k/uL Lymphocytes # 1.6 (1.0-4.8) k/uL Monocytes # 0.7 (0-1.0) k/uL Eosinophils # 0.3 (0-0.7) k/uL Basophils # 0.0 (0-0.2) k/uL Hypochromasia Moderate PT (9.0-12.0) sec INR (<1.2) APTT (22.0-30.0) sec Sodium 139 (137-145) mmol/L Potassium 4.4 (3.5-5.1) mmol/L Chloride 105 (98-107) mmol/L Carbon Dioxide 26 (22-30) mmol/L Anion Gap 8 mmol/L BUN 17 (9-20) mg/dL Creatinine 1.10 (0.66-1.25) mg/dL Est GFR (CKD-EPI)AfAm 72 (>60 ml/min/1.73 sqM) Est GFR (CKD-EPI)NonAf 62 (>60 ml/min/1.73 sqM) Glucose 116 H (74-99) mg/dL Calcium 9.3 (8.4-10.2) mg/dL Magnesium 2.0 (1.6-2.3) mg/dL Total Bilirubin 1.2 (0.2-1.3) mg/dL AST 29 (17-59) U/L ALT 27 (21-72) U/L Alkaline Phosphatase 88 (38-126) U/L Troponin I (0.000-0.034) ng/mL NT-Pro-B Natriuret Pep 2720 pg/mL Total Protein 6.8 (6.3-8.2) g/dL Albumin 3.9 (3.5-5.0) g/dL 12/25/18 12/25/18 Range/Units 20:06 20:06 WBC (3.8-10.6) k/uL RBC (4.30-5.90) m/uL Hgb (13.0-17.5) gm/dL Hct (39.0-53.0) % MCV (80.0-100.0) fL MCH (25.0-35.0) pg MCHC (31.0-37.0) g/dL RDW (11.5-15.5) % Plt Count (150-450) k/uL Neutrophils % % Lymphocytes % % Monocytes % % Eosinophils % % Basophils % % Neutrophils # (1.3-7.7) k/uL Lymphocytes # (1.0-4.8) k/uL Monocytes # (0-1.0) k/uL Eosinophils # (0-0.7) k/uL Basophils # (0-0.2) k/uL Hypochromasia PT 24.5 H (9.0-12.0) sec INR 2.5 H (<1.2) APTT 34.9 H (22.0-30.0) sec Sodium (137-145) mmol/L Potassium (3.5-5.1) mmol/L Chloride (98-107) mmol/L Carbon Dioxide (22-30) mmol/L Anion Gap mmol/L BUN (9-20) mg/dL Creatinine (0.66-1.25) mg/dL Est GFR (CKD-EPI)AfAm (>60 ml/min/1.73 sqM) Est GFR (CKD-EPI)NonAf (>60 ml/min/1.73 sqM) Glucose (74-99) mg/dL Calcium (8.4-10.2) mg/dL Magnesium (1.6-2.3) mg/dL Total Bilirubin (0.2-1.3) mg/dL AST (17-59) U/L ALT (21-72) U/L Alkaline Phosphatase (38-126) U/L Troponin I <0.012 (0.000-0.034) ng/mL NT-Pro-B Natriuret Pep pg/mL Total Protein (6.3-8.2) g/dL Albumin (3.5-5.0) g/dL - EKG Data -: EKG Interpreted by Me (EKG shows verbal rhythm with pacer and sinus rhythm. Rate was 61 QRS 84 QT) - Radiology Data Radiology results: report reviewed (Imaging shows evidence of CHF and cardiomegaly.), image reviewed Critical Care Time Critical Care Time: Yes Critical Care Time: 37 minutes of critical care time which includes initial presentation with history physical labs x-rays review of old charting. Multiple reevaluation of the patient. Discussed with patient family regarding findings discussion with the main physician, Dr. Rodrigez and admission orders documentation of the above Disposition Clinical Impression: Congestive heart failure, Adult respiratory distress syndrome, Acute exacerbation of chronic obstructive airways disease Disposition: ADMITTED IP TO THIS HOSP Condition: Serious Referrals: Thong Roman MD [Primary Care Provider] - 1-2 days
[2018-12-25 20:29] LABS: INR 2.5 (<1.2); Partial Thromboplastin Time 34.9 sec (22.0-30.0); Prothrombin Time 24.5 sec (9.0-12.0)
[2018-12-25 20:38] LABS: Albumin 3.9 g/dL (3.5-5.0); Calcium 9.3 mg/dL (8.4-10.2); Potassium 4.4 mmol/L (3.5-5.1); Total Bilirubin 1.2 mg/dL (0.2-1.3); Total Protein 6.8 g/dL (6.3-8.2)
--- NOTE | 2018-12-25 20:43 | XR ---
EXAMINATION TYPE: XR chest 2V DATE OF EXAM: 12/25/2018 COMPARISON: 03/04/2018 HISTORY: Difficulty breathing TECHNIQUE: Frontal and lateral views of the chest are obtained. FINDINGS: Heart is enlarged. There is pulmonary vascular congestion. There is no definite pleural ef fusion. There is left axillary pacemaker. There are sternal wires. There are chest leads. IMPRESSION: Cardiomegaly and mild heart failure. Pulmonary congestion increased compared to last exa m.
[2018-12-25] MEDS ORDERED: FLUTICASONE 50MCG/SPRAY NASAL 16GM EA NOSTRIL PRN (22:21)
[2018-12-25] MEDS ORDERED: HYDROcodone/APAP 5-325MG 1 EACH TAB PO PRN (22:21)
[2018-12-25] MEDS ORDERED: GUAIFENESIN 400 MG PO PRN (22:21)
[2018-12-25] MEDS ORDERED: traMADol 50 MG TAB PO PRN (22:21)
[2018-12-25] MEDS ORDERED: NON-FORMULARY DRUG (Enalapril 5 MG) PO SCH (22:30)
[2018-12-25 23:38] LABS: Glucose,Whole Blood 116 mg/dL (75-99)
[2018-12-26] MEDS: FUROSEMIDE 10 MG/ML 4 ML VIAL IV SCH ×3 (00:09→21:34)
[2018-12-26 01:43] LABS: INR 2.5 (<1.2); Prothrombin Time 24.6 sec (9.0-12.0)
[2018-12-26 06:33] LABS: Glucose,Whole Blood 252 mg/dL (75-99)
[2018-12-26] MEDS: INSULIN ASPART (NovoLOG) 100 UNIT/ML VIAL SQ SCH ×4 (06:41→21:34)
[2018-12-26] MEDS: PANTOPRAZOLE 40 MG TABLET PO SCH (06:41)
[2018-12-26] MEDS: ASPIRIN 81 MG PO SCH (08:24)
[2018-12-26] MEDS: metFORMIN 500 MG TAB PO SCH ×2 (08:24→21:34)
[2018-12-26] MEDS: MECLIZINE 25 MG TAB PO SCH ×2 (08:24→20:00)
[2018-12-26] MEDS: CHOLECALCIFEROL 1,000 UNIT TAB PO SCH (08:24)
[2018-12-26] MEDS: GABAPENTIN 300 MG CAP PO SCH ×3 (08:24→21:34)
[2018-12-26] MEDS: prednisoLONE ACETATE 1% OPHTH DROPS 5 ML BTL LEFT EYE SCH ×2 (08:25→20:03)
[2018-12-26] MEDS: POTASSIUM CHLORIDE ER 20 MEQ TAB.ER PO SCH (08:30)
[2018-12-26] MEDS: METOPROLOL TARTRATE 25 MG TAB PO SCH ×2 (08:30→20:00)
[2018-12-26] MEDS: BUDESONIDE 0.5 MG/2 ML NEBU INHALATION PRN ×2 (08:35→19:34)
[2018-12-26] MEDS ORDERED: FUROSEMIDE 20 MG TAB PO SCH (09:00)
[2018-12-26] MEDS ORDERED: NITROGLYCERIN OINT 1 INCH/GM PACKET TOPICAL SCH (09:00)
--- NOTE | 2018-12-26 10:21 | P.CRDCN ---
History of Present Illness Consult date: 12/26/18 Requesting physician: Thong Roman Consult reason: congestive heart failure Chief complaint: Short of breath History of present illness: This is a pleasant 83-year-old gentleman who follows regularly with Dr. Gonzales in the office. He has a known history of chronic persistent atrial fibrillation, or Isra artery disease with prior anterior wall [place] and bypass surgery in 2003, hyperlipidemia, hypertension, prior pacemaker implantation. According to the patient, he was having some difficulty in breathing which started in September. He did go to see Dr. Gonzales in the office who advised him to see a lung doctor. He went to see Dr. RANDAL Wilkins and was initiated on some inhalers and breathing treatments. According to this patient, he did see Dr. Shukla in the office subsequent to this as well, he does state that some of his symptoms improved however he was still quite short of breath. Over the past few days he has noticed his legs to be very swollen, and he states that his breathing is actually worsened. For this reason he came to the hospital for further evaluation and treatment. His initial chest x-ray showed congestive cardiac failure. His EKG showed atrial fibrillation, with paced rhythm. Blood pressure on arrival here 110/58 with a heart rate in the 70s, 91% on room air. White blood cell count 9.8, hemoglobin 12.1, platelet count 306. INR is 2.5, sodium 139, potassium 4.4, BUN 17 and creatinine 1.1. Troponin 0.012 with a BNP of 2720. Patient was initiated on IV Lasix in the emergency room. According to the patient, 2 or 3 weeks ago he was started on oral diuretics by Dr. Shukla as an outpatient, but states he felt as though his swelling worsened. At the time of my examination this morning, he is sitting up at the bedside, breathing is overall stable. According to the daughter who is at bedside, she states she has also recently noticed some exertional shortness of breath. Past Medical History Past Medical History: Atrial Fibrillation, Asthma, Coronary Artery Disease (CAD) , Diabetes Mellitus, Deep Vein Thrombosis (DVT), Eye Disorder, GERD/Reflux, Hyperlipidemia, Hypertension, Myocardial Infarction (TX), Osteoarthritis (OA) Additional Past Medical History / Comment(s): ASTHMA CHILD. Chronic back pain. HX KIDNEY STONE X1. NEUROPATHY IN FEET. SPINAL STENOSIS L3-5. RLS. POS BLOOD IN STOOLS ON EXAM. HAS PACEMAKER. STATES, "HAS LEADS LEFT IN CHEST, [address] GONZALES STATES HE COULDN'T HAVE HAD A DVT D/T USE OF WARFARIN. BEING TREATED FOR DETACHED LT RETINA. Last Myocardial Infarction Date:: 2003 History of Any Multi-Drug Resistant Organisms: None Reported Past Surgical History: Appendectomy, Coronary Bypass/CABG, Heart Catheterization , Orthopedic Surgery, Pacemaker Additional Past Surgical History / Comment(s): CARDIOVERSION. ORAL SURGERY. TRIPLE BYPASS 2003. CATARACTS. RT KNEE ARTHROSCOPY. BACK [facility]JECTIONS AT [facility] epidural for pain control Past Anesthesia/Blood Transfusion Reactions: No Reported Reaction Type of Cardiac Device: Permanent Pacemaker Device Placement Date:: UNKNOWN Past Psychological History: No Psychological Hx Reported Smoking Status: Former smoker Past Alcohol Use History: Rare Additional Past Alcohol Use History / Comment(s): STARTED SMOKING AT AGE15, SMOKED 1 PPD THEN WENT TO PIPE, QUIT SMOKING IN 2003 Past Drug Use History: None Reported - Past Family History Father Family Medical History: Congestive Heart Failure (CHF) Additional Family Medical History / Comment(s): AT AGE 83-CHF Mother Family Medical History: Dementia Additional Family Medical History / Comment(s): MOM AGE 94 -AL[place]HEIMERS Medications and Allergies Home Medications Medication Instructions Recorded Confirmed Type Aspirin 81 mg PO DAILY 06/13/14 12/25/18 History Cholecalciferol [Vitamin D3] 2,000 unit PO DAILY 06/13/14 12/25/18 History Hydrocodone/Acetaminophen [[place] 1 tab PO Q6H PRN 06/13/14 12/25/18 History 5-325] Omeprazole [PriLOSEC] 20 mg PO DAILY 06/13/14 12/25/18 History Potassium Chloride [Klor-Con 20] 20 meq PO DAILY 06/13/14 12/25/18 History Simvastatin [Zocor] 40 mg PO HS 06/13/14 12/25/18 History metFORMIN HCL [metFORMIN HCL ER] 1,000 mg PO DAILY 06/13/14 12/25/18 History Warfarin [Coumadin] 2.5 mg PO HS 10/08/16 12/25/18 History Meclizine [Antivert] 25 mg PO BID 07/26/17 12/25/18 History Metoprolol Tartrate 25 mg PO BID 07/26/17 12/25/18 History traMADol HCL [Ultram] 50 mg PO Q6H PRN 07/26/17 12/25/18 History Budesonide [Pulmicort] 0.5 mg INHALATION RT-BID PRN 12/25/18 12/25/18 History Enalapril [Vasotec] 5 mg PO DIRECTED 12/25/18 12/25/18 History Fluticasone Nasal [place] [Flonase 1 spray EA NOSTRIL BID PRN 12/25/18 12/25/18 History Nasal [place]] Furosemide [Lasix] 20 mg PO DAILY 12/25/18 12/25/18 History Gabapentin [Neurontin] 300 mg PO TID 12/25/18 12/25/18 History Prednisolone Acetate/Pf 1 drop LEFT EYE BID 12/25/18 12/25/18 History [Prednisolone Acet 1% Eye Drop] guaiFENesin 400 mg PO BID PRN 12/25/18 12/25/18 History rOPINIRole HCL [Requip] 2 mg PO HS 12/25/18 12/25/18 History Allergies Allergy/AdvReac Type Severity Reaction Status Date / Time Penicillins Allergy Swelling Verified 12/25/18 20:18 Physical Exam Vitals: Vital Signs Temp Pulse Pulse Resp BP BP Pulse Ox 12/26/18 08:49 62 12/26/18 08:40 97.8 F 64 18 121/58 97 12/26/18 08:38 62 12/26/18 05:13 97.9 F 60 19 110/53 96 12/25/18 23:10 98.1 F 65 16 128/71 96 12/25/18 22:51 62 18 138/62 97 12/25/18 22:00 60 18 144/80 91 L 12/25/18 21:00 64 16 118/57 97 12/25/18 20:55 60 16 12/25/18 20:52 20 12/25/18 20:46 60 16 121/74 97 12/25/18 19:49 98 F 71 16 111/58 91 L Intake and Output 12/25/18 12/26/18 12/26/18 22:59 06:59 14:59 Intake Total 240 Output Total 725 Balance -725 240 Intake: Oral 240 Output: Urine 725 Other: Voiding Method Urinal Urinal Weight 108.409 kg 106 kg PHYSICAL EXAMINATION: GENERAL: 83-year-old gentleman in no acute distress at the time of my examination HEENT: Head is atraumatic, normocephalic. Pupils equal, round. Sclera anicteric. Conjunctiva are clear. Mucous membranes of the mouth are moist. Neck is supple. There is elevated jugular venous pressure. No carotid bruit is heard. HEART EXAMINATION: Heart S1 and S2 irregularly irregular a soft systolic murmur is heard. CHEST EXAMINATION: Lungs reveal rales to bilateral bases. ABDOMEN: Soft, nontender. Bowel sounds are heard. No organomegaly noted. EXTREMITIES: 2+ peripheral pulses with 1+ evidence of peripheral edema and no calf tenderness noted. NEUROLOGIC patient is awake, alert and oriented X3. . Results 12/25/18 20:06 12/25/18 20:06 Cardiac Enzymes 12/25/18 12/25/18 Range/Units 20:06 20:06 AST 29 (17-59) U/L Troponin I <0.012 (0.000-0.034) ng/mL Coagulation 12/25/18 12/25/18 Range/Units 20:06 23:50 PT 24.5 H 24.6 H (9.0-12.0) sec APTT 34.9 H (22.0-30.0) sec CBC 12/25/18 Range/Units 20:06 WBC 9.8 (3.8-10.6) k/uL RBC 4.07 L (4.30-5.90) m/uL Hgb 12.1 L (13.0-17.5) gm/dL Hct 38.8 L (39.0-53.0) % Plt Count 306 (150-450) k/uL Comprehensive Metabolic Panel 12/25/18 Range/Units 20:06 Sodium 139 (137-145) mmol/L Potassium 4.4 (3.5-5.1) mmol/L Chloride 105 (98-107) mmol/L Carbon Dioxide 26 (22-30) mmol/L BUN 17 (9-20) mg/dL Creatinine 1.10 (0.66-1.25) mg/dL Glucose 116 H (74-99) mg/dL Calcium 9.3 (8.4-10.2) mg/dL AST 29 (17-59) U/L ALT 27 (21-72) U/L Alkaline Phosphatase 88 (38-126) U/L Total Protein 6.8 (6.3-8.2) g/dL Albumin 3.9 (3.5-5.0) g/dL Current Medications Generic Name Dose Route Start Last Admin Trade Name Freq PRN Reason Stop Dose Admin Hydrocodone Bitart/Acetaminophen 1 each 12/25/18 22:21 [place] 5-325 PO Q6H PRN Pain Aspirin 81 mg 12/26/18 09:00 12/26/18 08:24 Aspirin PO 81 mg DAILY EMILE Administration Atorvastatin Calcium 20 mg 12/26/18 21:00 Lipitor PO HS EMILE Budesonide 0.5 mg 12/25/18 22:21 12/26/18 08:35 Pulmicort INHALATION 0.5 mg RT-BID PRN Administration Shortness Of Breath Cholecalciferol 2,000 unit 12/26/18 09:00 12/26/18 08:24 Vitamin D3 PO 2,000 unit DAILY EMILE Administration Fluticasone Propionate 1 spray 12/25/18 22:21 Flonase Nasal [place] EA NOSTRIL BID PRN Nasal Congestion Furosemide 40 mg 12/25/18 22:30 12/26/18 08:25 Lasix IV 40 mg Q12H EMILE Administration Gabapentin 300 mg 12/26/18 09:00 12/26/18 08:24 Neurontin PO 300 mg TID EMILE Administration Insulin Aspart 0 unit 12/26/18 07:30 12/26/18 06:41 Novolog SQ 6 unit ACHS EMILE Administration Protocol Meclizine HCl 25 mg 12/26/18 09:00 12/26/18 08:24 Antivert PO 25 mg BID EMILE Administration Metformin HCl 500 mg 12/26/18 09:00 12/26/18 08:24 Glucophage PO 500 mg BID EMILE Administration Metoprolol Tartrate 25 mg 12/26/18 09:00 12/26/18 08:30 Lopressor PO 25 mg BID EMILE Administration Nitroglycerin 0.5 inch 12/26/18 09:00 12/26/18 08:24 Nitro-Bid Oint TOPICAL 0.5 inch QID EMILE Administration Pantoprazole Sodium 40 mg 12/26/18 07:30 12/26/18 06:41 Protonix PO 40 mg DAILY@0730 EMILE Administration Potassium Chloride 20 meq 12/26/18 09:00 12/26/18 08:30 K-Dur 20 PO 20 meq DAILY EMILE Administration Prednisolone Acetate 1 drops 12/26/18 09:00 12/26/18 08:25 Pred Forte 1% LEFT EYE 1 drops BID EMILE Administration Ropinirole HCl 2 mg 12/26/18 21:00 Requip PO HS EMILE Tramadol HCl 50 mg 12/25/18 22:21 Ultram PO Q6H PRN Pain Warfarin Sodium 2.5 mg 12/26/18 18:00 Coumadin PO DAILY@1800 EMILE Intake and Output 12/25/18 12/26/18 12/26/18 22:59 06:59 14:59 Intake Total 240 Output Total 725 Balance -725 240 Intake: Oral 240 Output: Urine 725 Other: Voiding Method Urinal Urinal Weight 108.409 kg 106 kg 12/25/18 20:06 12/25/18 20:06 EKG Interpretations (text) EKG shows paced rhythm with underlying atrial fibrillation. Assessment and Plan Plan: Assessment and plan #1 congestive cardiac failure, likely diastolic acute on chronic, LV function has been reported to be normal in the past. #2 chronic persistent atrial fibrillation #3 diabetes, on metformin #4 hypertension #5 hyperlipidemia #6 history of anterior wall myocardial infarction with three-vessel bypass in 2003 #7 prior pacemaker implantation Plan We will continue current dose of IV Lasix. We will also order a repeat echocardiogram with Doppler study be performed. Interrogate pacemaker. Continue to monitor intake and output along with daily weights and daily lytes BUN and creatinine. Continue Coumadin to maintain an INR in the range of 2- 2.5. Continue beta shawanda. Add an angiotensin shawanda to the patient's medication regime. Further recommendations to follow. DNP note has been reviewed, I agree with a documented findings and plan of care. Patient was seen and examined.
[2018-12-26 11:42] LABS: Glucose,Whole Blood 187 mg/dL (75-99)
--- NOTE | 2018-12-26 11:55 | ECHOF ---
Referral Reason:chf MEASUREMENTS -------- HEIGHT: 177.8 cm WEIGHT: 105.7 kg BP: RVIDd: 3.4 cm (< 3.3) IVSd: 1.5 cm (0.6 - 1.1) LVIDd: 5.6 cm (3.9 - 5.3) LVPWd: 1.4 cm (0.6 - 1.1) IVSs: 1.8 cm LVIDs: 3.7 cm LVPWs: 1.7 cm LAESV Index (A-L): 45.67 ml/m Ao Diam: 4.1 cm (2.0 - 3.7) AV Cusp: 2.3 cm (1.5 - 2.6) LA Diam: 3.2 cm (2.7 - 3.8) MV EXCURSION: 17.007 mm (> 18.000) MV EF SLOPE: 87 mm/s (70 - 150) EPSS: 0.9 cm MV E Maury: 0.60 m/s MV DecT: 221 ms MV A Maury: 0.24 m/s MV E/A Ratio: 2.54 AR PHT: 329 ms RAP: 5.00 mmHg RVSP: 21.25 mmHg FINDINGS -------- Pacerwire seen in RV and RA. This was a technically difficult study with suboptimal views. The left ventricular size is normal. There is moderate concentric left ventricular hypertrophy. O verall left ventricular systolic function is low-normal with, an EF between 50 - 55 %. The right ventricle is mildly enlarged. LA is severely dilated >40 ml/m2 The right atrial size is normal. Lumason used There is mild aortic valve sclerosis. Trace amount of aortic regurgitation. Mild mitral annular calcification present. Mild mitral regurgitation is present. Mild tricuspid regurgitation present. There is no evidence of pulmonary hypertension. The right v entricular systolic pressure, as measured by Doppler, is 21.25mmHg. There is no pulmonic regurgitation present. 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 IVC Not well visulized. There is no pericardial effusion. CONCLUSIONS -------- 1. Pacerwire seen in RV and RA. 2. This was a technically difficult study with suboptimal views. 3. The left ventricular size is normal. 4. There is moderate concentric left ventricular hypertrophy. 5. Overall left ventricular systolic function is low-normal with, an EF between 50 - 55 %. 6. The right ventricle is mildly enlarged. 7. LA is severely dilated >40 ml/m2 8. Lumason used 9. There is mild aortic valve sclerosis. 10. Trace amount of aortic regurgitation. 11. Mild mitral annular calcification present. 12. Mild mitral regurgitation is present. 13. Mild tricuspid regurgitation present. 14. There is no evidence of pulmonary hypertension. 15. There is no pulmonic regurgitation present. 16. 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 17. IVC Not well visulized. 18. There is no pericardial effusion. LISW: Kaylee Quispe RDCS
[2018-12-26] MEDS: LOSARTAN 25 MG TAB PO SCH (12:00)
[2018-12-26 14:53] VITALS: BMI 34.4
[2018-12-26] MEDS: SPIRONOLACTONE 25 MG TAB PO SCH (16:34)
[2018-12-26] MEDS: WARFARIN 5 MG TAB PO SCH (16:34)
[2018-12-26 16:52] LABS: Glucose,Whole Blood 153 mg/dL (75-99)
[2018-12-26] MEDS ORDERED: WARFARIN 5 MG TAB PO SCH (18:00)
--- NOTE | 2018-12-26 19:41 | HP ---
HISTORY AND PHYSICAL CHIEF COMPLAINT: Shortness of breath and lower extremity edema. HISTORY OF PRESENT ILLNESS: This is another admission for this 83-year-old white male. He has had a long-standing history of hypertension, coronary artery disease and diabetes. He called on the night of admission because he was having swelling of the lower extremities and shortness of breath. He was sent to emergency room, where he was found to be in congestive heart failure. REVIEW OF SYSTEMS: He denies any focal neurologic deficits, sputum production, hemoptysis, chest pain, syncope, orthopnea, PND, etc. He did note severe shortness short of breath with exertion. The remainder of the review of systems is unremarkable. Past medical history, family history, and personal and social histories reveal that he is ALLERGIC to CIPRO, WITH CODEINE and PENICILLIN. MEDICATIONS: Medications include: 1. Metoprolol. 2. Metformin. 3. Ropinirole. 4. Lasix. 5. Glimepiride. 6. Gabapentin. 7. Potassium. 8. Meclizine. 9. Omeprazole. 10.Simvastatin. 11.Tramadol. 12.Warfarin. 13.Nitrostat. 14.Vicodin. Surgically he has had appendectomy and triple bypass. He does not smoke. The rest of his history is unremarkable. PHYSICAL EXAMINATION: Blood pressure 136/88 with a pulse 94, irregularly irregular. Respirations were 38. In general he appeared to be slightly overweight and in no acute distress. Skin color is normal. Skin is warm and dry. Lymph nodes are not enlarged. Head, ears, eyes, nose, mouth and throat were normal. Neck veins were not distended. Thyroid was not enlarged. Chest was clear. There were decreased breath sounds at the bases. Cardiac exam demonstrated atrial fibrillation. Abdomen was soft and protuberant. Extremities demonstrated 2 to 3+ edema. Neurologically he was intact. He is admitted to the hospital with the diagnoses: 1. Congestive heart failure. 2. Coronary artery disease. 3. History of hypertension. 4. Type 2 diabetes mellitus. 5. Spinal stenosis of the lumbosacral spine. PLAN: 1. Bed rest. 2. IV fluids. 3. Diuresis. 4. Echocardiogram. 5. Cardiology consult. MMODL / IJN: [id number] /
[2018-12-26] MEDS: ATORVASTATIN 20 MG TAB PO SCH (20:00)
[2018-12-26 20:51] LABS: Glucose,Whole Blood 132 mg/dL (75-99)
[2018-12-27 06:10] LABS: Glucose,Whole Blood 122 mg/dL (75-99)
[2018-12-27] MEDS: PANTOPRAZOLE 40 MG TABLET PO SCH (06:12)
[2018-12-27] MEDS: INSULIN ASPART (NovoLOG) 100 UNIT/ML VIAL SQ SCH ×4 (06:12→21:59)
[2018-12-27 06:52] LABS: Basophils % (A) 0 %; Eosinophils # (A) 0.1 k/uL (0-0.7); Eosinophils % (A) 1 %; HCT 39.3 % (39.0-53.0); HGB 11.8 gm/dL (13.0-17.5); Hypochromasia Moderate; Lymphocytes # (A) 1.3 k/uL (1.0-4.8); Lymphocytes % (A) 11 %; MCH 29.4 pg (25.0-35.0); MCV 97.9 fL (80.0-100.0); Macrocytosis Slight; Mean Platelet Volume 6.3; Monocytes # (A) 0.6 k/uL (0-1.0); Monocytes % (A) 5 %; Neutrophils # (A) 9.7 k/uL (1.3-7.7); Neutrophils % (A) 81 %; Platelet Count 314 k/uL (150-450); RBC 4.01 m/uL (4.30-5.90); RDW 15.8 % (11.5-15.5)
[2018-12-27 07:08] LABS: Calcium 9.3 mg/dL (8.4-10.2); Potassium 4.4 mmol/L (3.5-5.1)
[2018-12-27] MEDS: LOSARTAN 25 MG TAB PO SCH (08:05)
[2018-12-27] MEDS: SPIRONOLACTONE 25 MG TAB PO SCH (08:05)
[2018-12-27] MEDS: MECLIZINE 25 MG TAB PO SCH ×2 (08:05→22:08)
[2018-12-27] MEDS: METOPROLOL TARTRATE 25 MG TAB PO SCH ×2 (08:05→22:07)
[2018-12-27] MEDS: ASPIRIN 81 MG PO SCH (08:05)
[2018-12-27] MEDS: CHOLECALCIFEROL 1,000 UNIT TAB PO SCH (08:05)
[2018-12-27] MEDS: GABAPENTIN 300 MG CAP PO SCH ×3 (08:05→22:08)
[2018-12-27] MEDS: POTASSIUM CHLORIDE ER 20 MEQ TAB.ER PO SCH (08:06)
[2018-12-27] MEDS: prednisoLONE ACETATE 1% OPHTH DROPS 5 ML BTL LEFT EYE SCH ×2 (08:06→22:11)
[2018-12-27] MEDS: metFORMIN 500 MG TAB PO SCH ×2 (08:06→22:08)
[2018-12-27] MEDS: FUROSEMIDE 10 MG/ML 4 ML VIAL IV SCH ×2 (08:06→22:08)
[2018-12-27] MEDS: BUDESONIDE 0.5 MG/2 ML NEBU INHALATION PRN ×2 (09:00→20:59)
[2018-12-27 11:39] LABS: Glucose,Whole Blood 89 mg/dL (75-99)
--- NOTE | 2018-12-27 14:45 | P.PN ---
Subjective Progress Note Date: 12/27/18 This is a pleasant 83-year-old gentleman who follows regularly with Dr. Dia in the office. He has a known history of chronic persistent atrial fibrillation, or Isra artery disease with prior anterior wall [place] and bypass surgery in 2003, hyperlipidemia, hypertension, prior pacemaker impla ntation. According to the patient, he was having some difficulty in breathing which started in September. He did go to see Dr. Dia in the office who advised him to see a lung doctor. He went to see Dr. RANDAL Wilkins and was initiated on some inhalers and breathing treatments. According to this patient, he did see Dr. Shukla in the office subsequent to this as well, he does state that some of his symptoms improved however he was still quite short of breath. Over the past few days he has noticed his legs to be very swollen, and he states that his breathing is actually worsened. For this reason he came to the hospital for further evaluation and treatment. His initial chest x-ray showed congestive cardiac failure. His EKG showed atrial fibrillation, with paced rhythm. Blood pressure on arrival here 110/58 with a heart rate in the 70s, 91% on room air. White blood cell count 9.8, hemoglobin 12.1, platelet count 306. INR is 2.5, sodium 139, potassium 4.4, BUN 17 and creatinine 1.1. Troponin 0.012 with a BNP of 2720. Patient was initiated on IV Lasix in the emergency room. According to the patient, 2 or 3 weeks ago he was started on oral diuretics by Dr. Shukla as an outpatient, but states he felt as though his swelling worsened. At the time of my examination this morning, he is sitting up at the bedside, breathing is overall stable. According to the daughter who is at bedside, she states she has also recently noticed some exertional shortness of breath. 12/27/2018 Patient was seen and examined this morning, although weight is not reflective, patient does state that he's been diuresing a significant amount of urine. Sodium 139, potassium 4.4, BUN 31 and creatinine 1.5. Patient continues to be on IV Lasix. Echocardiogram with Doppler study revealed an ejection fraction of 50-55%. From cardiology's perspective, we'll continue diuresing the patient with IV Lasix, we will also request pulmonary evaluation. Objective - Vital Signs Vital signs: Vital Signs Temp 97.7 F 12/27/18 12:00 Pulse 59 L 12/27/18 12:00 Resp 18 12/27/18 12:00 BP 107/54 12/27/18 12:00 Pulse Ox 96 12/27/18 12:00 Intake & Output 12/26/18 12/27/18 12/27/18 18:59 06:59 18:59 Intake Total 720 900 462 Output Total 700 400 Balance 20 900 62 Weight 106 kg 106.1 kg Intake: Oral 720 900 462 Output: Urine 700 400 Other: Voiding Method Urinal Urinal Urinal # Voids 2 - Exam PHYSICAL EXAMINATION: GENERAL: 83-year-old gentleman in no acute distress at the time of my examination HEENT: Head is atraumatic, normocephalic. Pupils equal, round. Sclera anicteric. Conjunctiva are clear. Mucous membranes of the mouth are moist. Neck is supple. There is elevated jugular venous pressure. No carotid bruit is heard. HEART EXAMINATION: Heart S1 and S2 irregularly irregular a soft systolic murmur is heard. CHEST EXAMINATION: Lungs reveal rales to bilateral bases. ABDOMEN: Soft, nontender. Bowel sounds are heard. No organomegaly noted. EXTREMITIES: 2+ peripheral pulses with trace evidence of peripheral edema and no calf tenderness noted. NEUROLOGIC patient is awake, alert and oriented X3. - Labs CBC & Chem 7: 12/27/18 06:28 12/27/18 06:28 Labs: Abnormal Lab Results - Last 24 Hours (Table) 12/26/18 12/26/18 12/27/18 Range/Units 16:49 20:50 06:09 WBC (3.8-10.6) k/uL RBC (4.30-5.90) m/uL Hgb (13.0-17.5) gm/dL MCHC (31.0-37.0) g/dL RDW (11.5-15.5) % Neutrophils # (1.3-7.7) k/uL Carbon Dioxide (22-30) mmol/L BUN (9-20) mg/dL Creatinine (0.66-1.25) mg/dL Glucose (74-99) mg/dL POC Glucose (mg/dL) 153 H 132 H 122 H (75-99) mg/dL 03/05/19 03/05/19 Range/Units 06:28 06:28 WBC 12.0 H (3.8-10.6) k/uL RBC 4.01 L (4.30-5.90) m/uL Hgb 11.8 L (13.0-17.5) gm/dL MCHC 30.0 L (31.0-37.0) g/dL RDW 15.8 H (11.5-15.5) % Neutrophils # 9.7 H (1.3-7.7) k/uL Carbon Dioxide 32 H (22-30) mmol/L BUN 31 H (9-20) mg/dL Creatinine 1.35 H (0.66-1.25) mg/dL Glucose 120 H (74-99) mg/dL POC Glucose (mg/dL) (75-99) mg/dL Assessment and Plan Plan: Assessment and plan #1 congestive cardiac failure, likely diastolic acute on chronic, LV function has been reported to be normal in the past. #2 chronic persistent atrial fibrillation #3 diabetes, on metformin #4 hypertension #5 hyperlipidemia #6 history of anterior wall myocardial infarction with three-vessel bypass in 2003 #7 prior pacemaker implantation Plan We will continue current dose of IV Lasix. Continue to monitor intake and output along with daily weights and daily lytes BUN and creatinine. Consult pulmonary. DNP note has been reviewed, I agree with a documented findings and plan of care. Patient was seen and examined.
[2018-12-27 16:23] LABS: Glucose,Whole Blood 89 mg/dL (75-99)
[2018-12-27] MEDS: WARFARIN 5 MG TAB PO SCH (17:39)
[2018-12-27 21:04] LABS: Glucose,Whole Blood 109 mg/dL (75-99)
[2018-12-27] MEDS: ATORVASTATIN 20 MG TAB PO SCH (22:10)
[2018-12-28 06:00] LABS: Glucose,Whole Blood 115 mg/dL (75-99)
[2018-12-28] MEDS: INSULIN ASPART (NovoLOG) 100 UNIT/ML VIAL SQ SCH ×3 (06:06→17:01)
[2018-12-28] MEDS: PANTOPRAZOLE 40 MG TABLET PO SCH (06:40)
[2018-12-28] MEDS: metFORMIN 500 MG TAB PO SCH (08:46)
[2018-12-28] MEDS: ASPIRIN 81 MG PO SCH (08:46)
[2018-12-28] MEDS: LOSARTAN 25 MG TAB PO SCH (08:46)
[2018-12-28] MEDS: POTASSIUM CHLORIDE ER 20 MEQ TAB.ER PO SCH (08:46)
[2018-12-28] MEDS: GABAPENTIN 300 MG CAP PO SCH ×2 (08:47→17:52)
[2018-12-28] MEDS: METOPROLOL TARTRATE 25 MG TAB PO SCH (08:47)
[2018-12-28] MEDS: FUROSEMIDE 10 MG/ML 4 ML VIAL IV SCH (08:47)
[2018-12-28] MEDS: MECLIZINE 25 MG TAB PO SCH (08:47)
[2018-12-28] MEDS: CHOLECALCIFEROL 1,000 UNIT TAB PO SCH (08:47)
[2018-12-28] MEDS: SPIRONOLACTONE 25 MG TAB PO SCH (08:47)
[2018-12-28] MEDS: BUDESONIDE 0.5 MG/2 ML NEBU INHALATION PRN (09:21)
[2018-12-28 11:15] LABS: Glucose,Whole Blood 120 mg/dL (75-99)
[2018-12-28] MEDS ORDERED: FUROSEMIDE 40 MG TAB PO SCH (12:15)
[2018-12-28 12:24] VITALS: BP 120/67; PULSE 68; RESP 14; TEMP 97.9
--- NOTE | 2018-12-28 15:34 | P.PN ---
Subjective Progress Note Date: 12/28/18 This is a pleasant 83-year-old gentleman who follows regularly with Dr. Dia in the office. He has a known history of chronic persistent atrial fibrillation, or Isra artery disease with prior anterior wall ME and bypass surgery in 2003, hyperlipidemia, hypertension, prior pacemaker impla ntation. According to the patient, he was having some difficulty in breathing which started in September. He did go to see Dr. Dia in the office who advised him to see a lung doctor. He went to see Dr. RANDAL Wilkins and was initiated on some inhalers and breathing treatments. According to this patient, he did see Dr. Shukla in the office subsequent to this as well, he does state that some of his symptoms improved however he was still quite short of breath. Over the past few days he has noticed his legs to be very swollen, and he states that his breathing is actually worsened. For this reason he came to the hospital for further evaluation and treatment. His initial chest x-ray showed congestive cardiac failure. His EKG showed atrial fibrillation, with paced rhythm. Blood pressure on arrival here 110/58 with a heart rate in the 70s, 91% on room air. White blood cell count 9.8, hemoglobin 12.1, platelet count 306. INR is 2.5, sodium 139, potassium 4.4, BUN 17 and creatinine 1.1. Troponin 0.012 with a BNP of 2720. Patient was initiated on IV Lasix in the emergency room. According to the patient, 2 or 3 weeks ago he was started on oral diuretics by Dr. Shukla as an outpatient, but states he felt as though his swelling worsened. At the time of my examination this morning, he is sitting up at the bedside, breathing is overall stable. According to the daughter who is at bedside, she states she has also recently noticed some exertional shortness of breath. 12/27/2018 Patient was seen and examined this morning, although weight is not reflective, patient does state that he's been diuresing a significant amount of urine. Sodium 139, potassium 4.4, BUN 31 and creatinine 1.5. Patient continues to be on IV Lasix. Echocardiogram with Doppler study revealed an ejection fraction of 50-55%. From cardiology's perspective, we'll continue diuresing the patient with IV Lasix, we will also request pulmonary evaluation. 12/28/2018 Patient seen and examined this morning, feels well, breathing is stable. Weight is down 2 kg, ejection fraction is normal. Blood pressure 120/60 with a heart rate in the 60s, 96% on room air. Objective - Vital Signs Vital signs: Vital Signs Temp 97.9 F 12/28/18 12:00 Pulse 68 12/28/18 12:00 Resp 14 12/28/18 12:00 BP 120/67 12/28/18 12:00 Pulse Ox 96 12/28/18 12:00 Intake & Output 12/27/18 12/28/18 12/28/18 18:59 06:59 18:59 Intake Total 684 702 Output Total 400 Balance 284 702 Weight 104.9 kg Intake: Oral 684 702 Output: Urine 400 Other: Voiding Method Urinal Urinal Urinal # Voids 3 - Exam PHYSICAL EXAMINATION: GENERAL: 83-year-old gentleman in no acute distress at the time of my examination HEENT: Head is atraumatic, normocephalic. Pupils equal, round. Sclera anicteric. Conjunctiva are clear. Mucous membranes of the mouth are moist. Neck is supple. There is elevated jugular venous pressure. No carotid bruit is heard. HEART EXAMINATION: Heart S1 and S2 irregularly irregular a soft systolic murmur is heard. CHEST EXAMINATION: Lungs reveal rales to bilateral bases. ABDOMEN: Soft, nontender. Bowel sounds are heard. No organomegaly noted. EXTREMITIES: 2+ peripheral pulses with trace evidence of peripheral edema and no calf tenderness noted. NEUROLOGIC patient is awake, alert and oriented X3. - Labs CBC & Chem 7: 12/27/18 06:28 12/27/18 06:28 Labs: Abnormal Lab Results - Last 24 Hours (Table) 12/27/18 12/28/18 12/28/18 Range/Units 21:03 05:58 11:14 POC Glucose (mg/dL) 109 H 115 H 120 H (75-99) mg/dL Assessment and Plan Plan: Assessment and plan #1 congestive cardiac failure, likely diastolic acute on chronic, LV function has been reported to be normal in the past. #2 chronic persistent atrial fibrillation #3 diabetes, on metformin #4 hypertension #5 hyperlipidemia #6 history of anterior wall myocardial infarction with three-vessel bypass in 2003 #7 prior pacemaker implantation Plan Patient may be able to be discharged home today from cardiology's perspective, we'll recommend a follow-up appointment in the office post discharge. DNP note has been reviewed, I agree with a documented findings and plan of care. Patient was seen and examined.
[2018-12-28 16:45] LABS: Glucose,Whole Blood 110 mg/dL (75-99)
[2018-12-28] MEDS: prednisoLONE ACETATE 1% OPHTH DROPS 5 ML BTL LEFT EYE SCH (17:02)
--- NOTE | 2018-12-28 17:11 | PN ---
PROGRESS NOTE CHIEF COMPLAINT: Edema, shortness of breath. HISTORY OF PRESENT ILLNESS: This gentleman is doing fairly well and breathing has improved slightly. BNP is high and he is diagnosed as having congestive heart failure. PHYSICAL EXAMINATION: Breath sounds are diminished with rales at the bases. Cardiac exam demonstrates an S3 and S4. Abdomen is soft and protuberant. Extremities are slightly edematous. IMPRESSION: 1. Acute on chronic congestive heart failure. 2. Diastolic dysfunction. 3. History of hypertension. 4. History of coronary artery disease. 5. Diabetes. PLAN: Echocardiogram. Await further recommendations from Cardiology. Meanwhile, he is being diuresed with an increased Lasix dose. MMODL / IJN: [id number] /
--- NOTE | 2018-12-28 17:14 | PN ---
PROGRESS NOTE DATE OF SERVICE: 12/27/2018 CHIEF COMPLAINT: Congestive heart failure. HISTORY OF PRESENT ILLNESS: This gentleman is doing better. He is diuresing slowly. The swelling is going down. He is less short of breath. PHYSICAL EXAMINATION: Breath sounds are fairly clear. Cardiac exam is unremarkable the. Abdomen is soft, nontender. It is protuberant. His edema is less. IMPRESSION: 1. Congestive heart failure, acute on chronic. 2. Atherosclerotic cardiomyopathy. 3. Diastolic heart failure. 4. Diabetes mellitus. 5. History of coronary artery bypass grafting secondary to coronary artery disease. PLAN: Possibly home tomorrow. He is doing better. MMODL / IJN: [id number] /
[2018-12-28] MEDS: WARFARIN 5 MG TAB PO SCH (17:52)
--- NOTE | 2018-12-28 18:20 | DS ---
DISCHARGE SUMMARY CHIEF COMPLAINT: Difficulty breathing. HISTORY OF PRESENT ILLNESS AND PHYSICAL EXAMINATION: Details of this man's history and physical can be found in the initial workup. LABORATORY STUDIES: While he was in the hospital he had laboratory studies, details of which can be found in the laboratory section of his chart. COURSE IN THE HOSPITAL: After admission he was placed on bedrest, started on intravenous fluids and diuresis. He was seen by Cardiology. It was determined that he was in congestive heart failure. As he diuresed, he continued to improve. He is doing well. It was felt that he could go home on December 28. He will go home on his usual activity, diet and medication, and his Lasix will be increased and Aldactone will also be added. He was also encouraged to seriously cut down on his salt, lose weight and exercise. FINAL DIAGNOSES: 1. Acute congestive heart failure. 2. Chronic congestive heart failure. 3. Diastolic congestive heart failure. 4. Diabetes mellitus. 5. Borderline renal failure. OPERATIONS: None. CONSULTATIONS: Cardiology. He is improved. MMEDL / IJN: [id number] /
--- NOTE | 2018-12-29 11:45 | CDI ---
Documentation Clarification Form Date: 12/29/2018 11:29:44 AM From: Christel Juarez Phone: If you have a question about this query, please contact Teresita Stock Principal Archaeologist at [phone] between 8am and 5pm. Admit Date: 12/25/2018 10:13:00 PM Patient Name: Corey Lopez Visit Number: [id number] Discharge Date: 12/28/2018 6:00:00 PM ATTENTION: The Clinical Documentation Specialists (CDI) and [facility] Coding Staff appreciate your assistance in clarifying documentation. Please respond to the clarification below the line at the bottom and electronically sign. The CDI & [facility] Coding staff will review the response and follow-up if needed. Please note: Queries are made part of the Legal Health Record. If you have any questions, please contact the author of this message via ITS. Dr. Thong Roman Borderline renal failure was documented in the [facility]. Please clarify if this is borderline chronic renal failure or acute renal failure History/Risk Factors: CHF, HTN, DM Patients baseline BUN/CR/GFR: Clinical Indicators: Current BUN/Cr/GFR: 31 1.35 GFR 62 then 49 In order to capture the severity of condition, please clarify if the condition signifies: Acute kidney injury Acute on chronic renal failure CKD Stage 1 GFR >90 CKD Stage 2 GFR 60-89 CKD Stage 3 GFR 30-59 CKD Stage 4 GFR 15-29 CKD Stage 5 GFR <15 Chronic renal failure/Chronic Kidney disease (CKD) please stage (if known): CKD Stage 1 GFR >90 CKD Stage 2 GFR 60-89 CKD Stage 3 GFR 30-59 CKD Stage 4 GFR 15-29 CKD Stage 5 GFR <15 ESRD Other, please specify Unable to determine MTDD
--- NOTE | 2018-12-29 16:58 | P.CNPUL ---
History of Present Illness Consult date: 12/28/18 Reason for consult: dyspnea, asthma History of present illness: Late entry Patient seen and examined in consultation for shortness of breath. The patient is known to Dr. RANDAL Wilkins. He does have a history of COPD and asthma. The patient states that he had shortness of breath which began about a week ago. He does note that he has worsening lower extremity edema over the past few days. He denies fevers and chills. He states that he does cough and is able to produce phlegm. When he is able to produce phlegm his breathing gets better. T he patient states he is not really sure if he has asthma. He does use breathing treatments at home. He uses Pulmicort twice a day. He was previously on duo nebs but stopped taking them because it dried his mouth out. He denies any seasonal or environmental ALLERGIES. The patient's chest x-ray done on 12/25/2018 shows cardiomegaly and mild pulmonary vascular congestion. The patient has been diuresis during his stay and states he is feeling better overall. He is currently on room air. He states he would like to go home. Review of Systems All systems: negative Past Medical History Past Medical History: Atrial Fibrillation, Asthma, Coronary Artery Disease (CAD), Diabetes Mellitus, Deep Vein Thrombosis (DVT), Eye Disorder, GERD/Reflux, Hyperlipidemia, Hypertension, Myocardial Infarction (DE), Osteoarthritis (OA) Additional Past Medical History / Comment(s): ASTHMA CHILD. Chronic back pain. HX KIDNEY STONE X1. NEUROPATHY IN FEET. SPINAL STENOSIS L3-5. RLS. POS BLOOD IN STOOLS ON EXAM. HAS PACEMAKER. STATES, "HAS LEADS LEFT IN CHEST, [address] GONZALES STATES HE COULDN'T HAVE HAD A DVT D/T USE OF WARFARIN. BEING TREATED FOR DETACHED LT RETINA. Last Myocardial Infarction Date:: 2003 History of Any Multi-Drug Resistant Organisms: None Reported Past Surgical History: Appendectomy, Coronary Bypass/CABG, Heart Catheterization, Orthopedic Surgery, Pacemaker Additional Past Surgical History / Comment(s): CARDIOVERSION. ORAL SURGERY. TRIPLE BYPASS 2003. CATARACTS. RT KNEE ARTHROSCOPY. BACK [facility]JECTIONS AT [facility] epidural for pain control Past Anesthesia/Blood Transfusion Reactions: No Reported Reaction Type of Cardiac Device: Permanent Pacemaker Device Placement Date:: UNKNOWN Past Psychological History: No Psychological Hx Reported Smoking Status: Former smoker Past Alcohol Use History: Rare Additional Past Alcohol Use History / Comment(s): STARTED SMOKING AT AGE15, SMOKED 1 PPD THEN WENT TO PIPE, QUIT SMOKING IN 2003 Past Drug Use History: None Reported - Past Family History Father Family Medical History: Congestive Heart Failure (CHF) Additional Family Medical History / Comment(s): AT AGE 83-CHF Mother Family Medical History: Dementia Additional Family Medical History / Comment(s): MOM AGE 94 -[place]IMERS Medications and Allergies Home Medications Medication Instructions Recorded Confirmed Type Aspirin 81 mg PO DAILY 06/13/14 12/25/18 History Cholecalciferol [Vitamin D3] 2,000 unit PO DAILY 06/13/14 12/25/18 History Hydrocodone/Acetaminophen [Warren 1 tab PO Q6H PRN 06/13/14 12/25/18 History 5-325] Omeprazole [PriLOSEC] 20 mg PO DAILY 06/13/14 12/25/18 History Potassium Chloride [Klor-Con 20] 20 meq PO DAILY 06/13/14 12/25/18 History Warfarin [Coumadin] 2.5 mg PO HS 10/08/16 12/25/18 History Meclizine [Antivert] 25 mg PO BID 07/26/17 12/25/18 History Metoprolol Tartrate 25 mg PO BID 07/26/17 12/25/18 History traMADol HCL [Ultram] 50 mg PO Q6H PRN 07/26/17 12/25/18 History Budesonide [Pulmicort] 0.5 mg INHALATION RT-BID PRN 12/25/18 12/25/18 History Fluticasone Nasal [place] [Flonase 1 spray EA NOSTRIL BID PRN 12/25/18 12/25/18 History Nasal [place]] Gabapentin [Neurontin] 300 mg PO TID 12/25/18 12/25/18 History Prednisolone Acetate/Pf 1 drop LEFT EYE BID 12/25/18 12/25/18 History [Prednisolone Acet 1% Eye Drop] guaiFENesin 400 mg PO BID PRN 12/25/18 12/25/18 History rOPINIRole HCL [Requip] 2 mg PO HS 12/25/18 12/25/18 History Atorvastatin [Lipitor] 20 mg PO HS #30 tab 12/28/18 Rx Furosemide [Lasix] 40 mg PO DAILY #30 tab 12/28/18 Rx Losartan [Cozaar] 12.5 mg PO DAILY #30 tab 12/28/18 Rx Spironolactone [Aldactone] 25 mg PO DAILY #30 tab 12/28/18 Rx Allergies Allergy/AdvReac Type Severity Reaction Status Date / Time Penicillins Allergy Swelling Verified 12/25/18 20:18 Physical Exam Osteopathic Statement: *. No significant issues noted on an osteopathic structural exam other than those noted in the History and Physical/Consult. Gen.: Patient is alert and oriented 3, no acute distress Cardiovascular: Regular rate and rhythm, S1/S2 Lungs: Scattered bilateral crackles Abdomen: Soft nontender nondistended positive bowel sounds Extremities: + edema Results - Laboratory Findings CBC and BMP: 12/27/18 06:28 12/27/18 06:28 PT/INR, D-dimer PT 24.6 sec (9.0-12.0) H 12/25/18 23:50 INR 2.5 (<1.2) H 12/25/18 23:50 D-Dimer 0.35 mg/L FEU (<0.60) 12/27/18 14:14 Abnormal lab findings: Abnormal Labs 12/25/18 12/25/18 12/25/18 20:06 20:06 20:06 WBC RBC 4.07 L Hgb 12.1 L Hct 38.8 L MCHC RDW 15.6 H Neutrophils # PT 24.5 H INR 2.5 H APTT 34.9 H Carbon Dioxide BUN Creatinine Glucose 116 H POC Glucose (mg/dL) 12/25/18 12/25/18 12/26/18 23:26 23:50 06:31 WBC RBC Hgb Hct MCHC RDW Neutrophils # PT 24.6 H INR 2.5 H APTT Carbon Dioxide BUN Creatinine Glucose POC Glucose (mg/dL) 116 H 252 H 12/26/18 12/26/18 12/26/18 11:23 16:49 20:50 WBC RBC Hgb Hct MCHC RDW Neutrophils # PT INR APTT Carbon Dioxide BUN Creatinine Glucose POC Glucose (mg/dL) 187 H 153 H 132 H 12/27/18 12/27/18 12/27/18 06:09 06:28 06:28 WBC 12.0 H RBC 4.01 L Hgb 11.8 L Hct MCHC 30.0 L RDW 15.8 H Neutrophils # 9.7 H PT INR APTT Carbon Dioxide 32 H BUN 31 H Creatinine 1.35 H Glucose 120 H POC Glucose (mg/dL) 122 H 12/27/18 12/28/18 12/28/18 21:03 05:58 11:14 WBC RBC Hgb Hct MCHC RDW Neutrophils # PT INR APTT Carbon Dioxide BUN Creatinine Glucose POC Glucose (mg/dL) 109 H 115 H 120 H 12/28/18 16:33 WBC RBC Hgb Hct MCHC RDW Neutrophils # PT INR APTT Carbon Dioxide BUN Creatinine Glucose POC Glucose (mg/dL) 110 H - Diagnostic Findings Chest x-ray: report reviewed, image reviewed Assessment and Plan Assessment: Allergic asthma Elevated IgE Emphysema Acute on chronic CHF, diastolic Chronic persistent atrial fibrillation DM2 Hypertension Dyslipidemia ASCAD, history of DE Peripheral vascular disease Normochromic, normocytic anemia Coumadin coagulopathy, at goal ASHLEY Patient is currently on RA Encouraged to continue to use Pulmicort BID for now Positive allergy panel and elevated IgE discussed with the patient and his family Albuterol nebs PRN Allergen avoidance Cardiology recommendations Monitor Na intake and daily weight at home Ok to DC from pulmonary standpoint Follow up in 2-3 days Thank you for this consultation. We will continue to follow along.
--- NOTE | 2019-01-05 11:36 | MISC ---
MISCELLANOUS REPORT QUERY Chronic renal failure, stage 3A. MMODL / IJN: [id number] /
== END 2018-12-28 18:00 | disposition home health service (06) | DRG 291 ==
LOC: EC 19:48 → 3SCARD 22:13
PROVIDERS: ADMIT Family Medicine; ATTEND Family Medicine
DX: I13.0 Hypertensive heart and chronic kidney disease with heart failure and stage 1 through stage 4 chronic kidney disease, or unspecified chronic kidney disease (principal); I50.33 Acute on chronic diastolic (congestive) heart failure; I48.1 Persistent atrial fibrillation; N17.9 Acute kidney failure, unspecified; E11.22 Type 2 diabetes mellitus with diabetic chronic kidney disease; Z79.84 Long term (current) use of oral hypoglycemic drugs; E78.5 Hyperlipidemia, unspecified; G25.81 Restless legs syndrome; I25.10 Atherosclerotic heart disease of native coronary artery without angina pectoris; I25.2 Old myocardial infarction; I42.9 Cardiomyopathy, unspecified; I48.2 Chronic atrial fibrillation; K21.9 Gastro-esophageal reflux disease without esophagitis; Z79.01 Long term (current) use of anticoagulants; Z79.82 Long term (current) use of aspirin; Z79.899 Other long term (current) drug therapy; Z82.0 Family history of epilepsy and other diseases of the nervous system; Z82.49 Family history of ischemic heart disease and other diseases of the circulatory system; Z87.442 Personal history of urinary calculi; Z87.891 Personal history of nicotine dependence; Z95.0 Presence of cardiac pacemaker; Z95.1 Presence of aortocoronary bypass graft; Z88.1 Allergy status to other antibiotic agents; Z88.5 Allergy status to narcotic agent; Z88.0 Allergy status to penicillin; Z86.718 Personal history of other venous thrombosis and embolism; M48.061 Spinal stenosis, lumbar region without neurogenic claudication; M19.90 Unspecified osteoarthritis, unspecified site; R74.8 Abnormal levels of other serum enzymes; N18.3 Chronic kidney disease, stage 3 (moderate); D64.9 Anemia, unspecified; E11.51 Type 2 diabetes mellitus with diabetic peripheral angiopathy without gangrene; J43.9 Emphysema, unspecified
CPT/HCPCS: 36415; 71046; 80048; 80053; 83735; 83880; 84484; 85025; 85379; 85610; 85730; 93005; 93306; 94640; 96374; 96375; 99291

== ENCOUNTER → 2019-01-26 | Outpatient (CLI) | payer MEDICARE, BC ==
[2019-01-26 18:35] LABS: Anion Gap 5.6 mmol/L (4.00-12.00); Calcium 9.5 mg/dL (8.7-10.3); Carbon Dioxide 28.4 mmol/L (21.6-31.8); Potassium 4.8 mmol/L (3.5-5.5)
== END | disposition home or self-care (01) ==
LOC: LABWHC1 11:27
PROVIDERS: ATTEND Internal Medicine Cardiovascular Disease
DX: I50.9 Heart failure, unspecified (principal)
CPT/HCPCS: 36415; 80048

== ENCOUNTER 2019-04-02 14:25 | Inpatient (IN) | payer MEDICARE, BC ==
--- NOTE | 2019-04-02 15:28 | ED ---
General Adult HPI - General Chief complaint: Recheck/Abnormal Lab/Rx Stated complaint: high potassium/ low HTN Time Seen by Provider: 04/02/19 15:10 Source: patient, family, RN notes reviewed, old records reviewed Mode of arrival: wheelchair Limitations: physical limitation - History of Present Illness Initial comments: 84 -year-old male history of hypertension, diabetes presents with low blood pressure, and elevated potassium on outpatient laboratory testing. Potassium is 6.3. He does have history of chronic kidney disease. His son states his last GFR was 21. He had labs drawn on which is 3 days prior to arrival. He has been complaining of some generalized fatigue. No fever or chills. No chest pain or dyspnea. No abdominal pain nausea vomiting. Patient was previously taken off of his Lasix and his potassium supplementation. - Related Data Home Medications Medication Instructions Recorded Confirmed Aspirin 81 mg PO DAILY 06/13/14 04/02/19 Cholecalciferol [Vitamin D3 (25 2,000 unit PO DAILY 06/13/14 04/02/19 Mcg = 1000 Iu)] Hydrocodone/Acetaminophen [[place] 1 tab PO Q6H PRN 06/13/14 04/02/19 5-325] Omeprazole [PriLOSEC] 20 mg PO DAILY 06/13/14 04/02/19 Meclizine [Antivert] 25 mg PO BID 07/26/17 04/02/19 Metoprolol Tartrate 25 mg PO BID 07/26/17 04/02/19 traMADol HCL [Ultram] 50 mg PO Q6H PRN 07/26/17 04/02/19 Budesonide [Pulmicort] 0.5 mg INHALATION RT-BID 12/25/18 04/02/19 Gabapentin [Neurontin] 300 mg PO TID 12/25/18 04/02/19 Prednisolone Acetate/Pf 1 drop LEFT EYE BID 12/25/18 04/02/19 [Prednisolone Acet 1% Eye Drop] guaiFENesin 400 mg PO BID PRN 12/25/18 04/02/19 Ipratropium Nebulized [Atrovent 0.5 mg INHALATION Q6HR PRN 04/02/19 04/02/19 Nebulized 0.2 MG/ML] Montelukast [Singulair] 10 mg PO HS 04/02/19 04/02/19 Warfarin [Coumadin] 3 mg PO SUTUWEFRSA 04/02/19 04/02/19 Warfarin [Coumadin] 4.5 mg PO MOTH 04/02/19 04/02/19 Previous Rx's Medication Instructions Recorded Atorvastatin [Lipitor] 20 mg PO HS #30 tab 12/28/18 Losartan [Cozaar] 12.5 mg PO DAILY #30 tab 12/28/18 Allergies Allergy/AdvReac Type Severity Reaction Status Date / Time Penicillins Allergy Swelling Verified 04/02/19 16:20 Review of Systems ROS Statement: Those systems with pertinent positive or pertinent negative responses have been documented in the HPI. ROS Other: All systems not noted in ROS Statement are negative. Past Medical History Past Medical History: Atrial Fibrillation, Asthma, Coronary Artery Disease (CAD), Diabetes Mellitus, Deep Vein Thrombosis (DVT), Eye Disorder, GERD/Reflux, Hyperlipidemia, Hypertension, Myocardial Infarction ([place]), Osteoarthritis (OA) Additional Past Medical History / Comment(s): ASTHMA CHILD. Chronic back pain. HX KIDNEY STONE X1. NEUROPATHY IN FEET. SPINAL STENOSIS L3-5. RLS. POS BLOOD IN STOOLS ON EXAM. HAS PACEMAKER. STATES, "HAS LEADS LEFT IN CHEST, [address] GONZALES STATES HE COULDN'T HAVE HAD A DVT D/T USE OF WARFARIN. BEING TREATED FOR DETACHED LT RETINA. Last Myocardial Infarction Date:: 2003 History of Any Multi-Drug Resistant Organisms: None Reported Past Surgical History: Appendectomy, Coronary Bypass/CABG, Heart Catheterization, Orthopedic Surgery, Pacemaker Additional Past Surgical History / Comment(s): CARDIOVERSION. ORAL SURGERY. TRIPLE BYPASS 2003. CATARACTS. RT KNEE ARTHROSCOPY. BACK [facility]JECTIONS AT [facility] epidural for pain control Past Anesthesia/Blood Transfusion Reactions: No Reported Reaction Type of Cardiac Device: Permanent Pacemaker Device Placement Date:: UNKNOWN Past Psychological History: No Psychological Hx Reported Smoking Status: Former smoker Past Alcohol Use History: Rare Past Drug Use History: None Reported - Past Family History Father Family Medical History: Congestive Heart Failure (CHF) Additional Family Medical History / Comment(s): AT AGE 83-CHF Mother Family Medical History: Dementia Additional Family Medical History / Comment(s): MOM AGE 94 -ALZHEIMERS General Exam Limitations: physical limitation General appearance: alert, in no apparent distress Head exam: Present: atraumatic, normocephalic Eye exam: Present: normal appearance, PERRL ENT exam: Present: mucous membranes dry Neck exam: Present: normal inspection. Absent: tenderness, meningismus Respiratory exam: Present: normal lung sounds bilaterally. Absent: respiratory distress, wheezes Cardiovascular Exam: Present: normal rhythm, bradycardia GI/Abdominal exam: Present: soft. Absent: distended, tenderness, guarding, rebound Extremities exam: Present: normal inspection, normal capillary refill. Absent: pedal edema Neurological exam: Present: alert, oriented X3, CN II-XII intact. Absent: motor sensory deficit Psychiatric exam: Present: normal affect, normal mood Skin exam: Present: warm, dry, intact, pallor. Absent: cyanosis, diaphoretic Course Vital Signs 04/02/19 04/02/19 04/02/19 14:43 15:49 16:35 Temperature 98.2 F Pulse Rate 60 59 L Respiratory 18 18 Rate Blood Pressure 80/45 79/33 98/41 O2 Sat by Pulse 98 94 L Oximetry - Reevaluation(s) Reevaluation #1: 04/02/19 16:58 Patient admitted to [facility] physician Dr. Akers, patient's primary care ph ysician not reachable. EKG Findings - EKG Comments: EKG Findings:: EKG: Ventricular paced rhythm, rate of 60, QRS duration 198, QTC 482 Medical Decision Making - Medical Decision Making 84 yo male presenting with abnormal outpatient lab. Patient had hyperkalemia and hypotension. Pressure is low in the emergency department, given IV hydration. Laboratory studies are repeated. He has normal CBC, he has acid 5.7 which is improved. He was treated with Kayexalate, calcium gluconate. EKG shows paced rhythm. His creatinine is significantly worsened at 2.93. Will be admitted for IV hydration, close monitoring of electrolytes and kidney function. Nephrology placed on consult. - Lab Data Result diagrams: 04/02/19 15:35 04/02/19 15:35 Lab Results 04/02/19 04/02/19 04/02/19 Range/Units 15:35 15:35 15:35 WBC 8.2 (3.8-10.6) k/uL RBC 4.42 (4.30-5.90) m/uL Hgb 12.9 L (13.0-17.5) gm/dL Hct 40.4 (39.0-53.0) % MCV 91.3 (80.0-100.0) fL MCH 29.3 (25.0-35.0) pg MCHC 32.1 (31.0-37.0) g/dL RDW 15.7 H (11.5-15.5) % Plt Count 313 (150-450) k/uL Neutrophils % 71 % Lymphocytes % 14 % Monocytes % 7 % Eosinophils % 4 % Basophils % 1 % Neutrophils # 5.8 (1.3-7.7) k/uL Lymphocytes # 1.1 (1.0-4.8) k/uL Monocytes # 0.6 (0-1.0) k/uL Eosinophils # 0.3 (0-0.7) k/uL Basophils # 0.1 (0-0.2) k/uL PT (9.0-12.0) sec INR (<1.2) APTT (22.0-30.0) sec Sodium 138 (137-145) mmol/L Potassium 5.7 H (3.5-5.1) mmol/L Chloride 108 H (98-107) mmol/L Carbon Dioxide 22 (22-30) mmol/L Anion Gap 8 mmol/L BUN 64 H (9-20) mg/dL Creatinine 2.93 H (0.66-1.25) mg/dL Est GFR (CKD-EPI)AfAm 22 (>60 ml/min/1.73 sqM) Est GFR (CKD-EPI)NonAf 19 (>60 ml/min/1.73 sqM) Glucose 119 H (74-99) mg/dL Plasma Lactic Acid Charanjit 1.5 (0.7-2.0) mmol/L Calcium 8.9 (8.4-10.2) mg/dL Magnesium 1.8 (1.6-2.3) mg/dL Total Bilirubin 0.5 (0.2-1.3) mg/dL AST 27 (17-59) U/L ALT 23 (21-72) U/L Alkaline Phosphatase 93 (38-126) U/L Total Protein 6.6 (6.3-8.2) g/dL Albumin 3.7 (3.5-5.0) g/dL 04/02/19 Range/Units 15:35 WBC (3.8-10.6) k/uL RBC (4.30-5.90) m/uL Hgb (13.0-17.5) gm/dL Hct (39.0-53.0) % MCV (80.0-100.0) fL MCH (25.0-35.0) pg MCHC (31.0-37.0) g/dL RDW (11.5-15.5) % Plt Count (150-450) k/uL Neutrophils % % Lymphocytes % % Monocytes % % Eosinophils % % Basophils % % Neutrophils # (1.3-7.7) k/uL Lymphocytes # (1.0-4.8) k/uL Monocytes # (0-1.0) k/uL Eosinophils # (0-0.7) k/uL Basophils # (0-0.2) k/uL PT 21.4 H (9.0-12.0) sec INR 2.2 H (<1.2) APTT 33.4 H (22.0-30.0) sec Sodium (137-145) mmol/L Potassium (3.5-5.1) mmol/L Chloride (98-107) mmol/L Carbon Dioxide (22-30) mmol/L Anion Gap mmol/L BUN (9-20) mg/dL Creatinine (0.66-1.25) mg/dL Est GFR (CKD-EPI)AfAm (>60 ml/min/1.73 sqM) Est GFR (CKD-EPI)NonAf (>60 ml/min/1.73 sqM) Glucose (74-99) mg/dL Plasma Lactic Acid Charanjit (0.7-2.0) mmol/L Calcium (8.4-10.2) mg/dL Magnesium (1.6-2.3) mg/dL Total Bilirubin (0.2-1.3) mg/dL AST (17-59) U/L ALT (21-72) U/L Alkaline Phosphatase (38-126) U/L Total Protein (6.3-8.2) g/dL Albumin (3.5-5.0) g/dL Disposition Clinical Impression: Hyperkalemia, ASHLEY (acute kidney injury) Disposition: ADMITTED IP TO THIS HOSP Condition: Stable Is patient prescribed a controlled substance at d/c from ED?: No Referrals: Thong Roman MD [Primary Care Provider] - 1-2 days Decision to Admit Reason: Admit from EC Decision Date: 04/02/19 Decision Time: 16:59
[2019-04-02] MEDS ORDERED: SODIUM CHLORIDE 0.9% 500 ML 500 ML IV ONE ×2 (15:53→17:25)
[2019-04-02 15:54] LABS: Basophils # (A) 0.1 k/uL (0-0.2); Basophils % (A) 1 %; Eosinophils # (A) 0.3 k/uL (0-0.7); Eosinophils % (A) 4 %; HCT 40.4 % (39.0-53.0); HGB 12.9 gm/dL (13.0-17.5); Lymphocytes # (A) 1.1 k/uL (1.0-4.8); Lymphocytes % (A) 14 %; MCH 29.3 pg (25.0-35.0); MCHC 32.1 g/dL (31.0-37.0); MCV 91.3 fL (80.0-100.0); Mean Platelet Volume 7.2; Monocytes # (A) 0.6 k/uL (0-1.0); Monocytes % (A) 7 %; Neutrophils # (A) 5.8 k/uL (1.3-7.7); Neutrophils % (A) 71 %; Platelet Count 313 k/uL (150-450); RBC 4.42 m/uL (4.30-5.90); RDW 15.7 % (11.5-15.5); WBC 8.2 k/uL (3.8-10.6)
[2019-04-02 16:09] LABS: INR 2.2 (<1.2); Partial Thromboplastin Time 33.4 sec (22.0-30.0); Prothrombin Time 21.4 sec (9.0-12.0)
[2019-04-02 16:29] LABS: Albumin 3.7 g/dL (3.5-5.0); Calcium 8.9 mg/dL (8.4-10.2); Magnesium 1.8 mg/dL (1.6-2.3); Potassium 5.7 mmol/L (3.5-5.1); Total Bilirubin 0.5 mg/dL (0.2-1.3); Total Protein 6.6 g/dL (6.3-8.2)
[2019-04-02] MEDS ORDERED: SODIUM CHLORIDE 0.9% 1,000 ML IV SCH (16:30)
[2019-04-02] MEDS ORDERED: SODIUM POLYSTYRENE SULFONATE 15 GM/60 ML BOTTLE PO ONE (16:30)
[2019-04-02] MEDS ORDERED: NALOXONE 0.4 MG/ML 1 ML VIAL IV PRN (16:45)
[2019-04-02] MEDS ORDERED: CALCIUM GLUCONATE 1 GM in SODIUM CHLORIDE 0.9% 100 ML IVPB ONE (17:00)
[2019-04-02] MEDS: SODIUM CHLORIDE 0.9% 1,000 ML IV SCH (17:26)
[2019-04-02] MEDS ORDERED: SODIUM BICARB 8.4% 50 ML SYR (1 MEQ/ML) IV STA (17:36)
[2019-04-02] MEDS ORDERED: ACETAMINOPHEN TAB 325 MG TAB PO PRN (18:42)
[2019-04-02] MEDS ORDERED: MELATONIN 3 MG TABLET PO PRN (18:42)
[2019-04-02] MEDS ORDERED: traMADol 50 MG TAB PO PRN (18:52)
[2019-04-02] MEDS ORDERED: HYDROcodone/APAP 5-325MG 1 EACH TAB PO PRN (18:52)
--- NOTE | 2019-04-02 18:58 | P.HPIM ---
History of Present Illness H&P Date: 04/02/19 Chief Complaint: high potassium Patient is an 84-year-old male past medical history of congestive heart failure with ejection fraction 50-55%, myocardial infarction with prior triple vessel coronary artery bypass grafting, hypertension, diabetes mellitus type 2 with recent episode of hypoglycemia, and dyslipidemia who presented to the ER with concerns over his potassium level. Apparently patient had been in Dr. Londono's office on and had blood work drawn. He was called and told that his potassium level was elevated at 6.7. He was told to stop his Lasix and potassium supplementation. He was given a prescription for Kaopectate which he has not taken. Family was concerned about what his potassium level was therefore presented to the ER. Patient underwent an extensive evaluation in the emergency department. He was found to be hypotensive with blood pressure of 80/45. Initial laboratory analysis revealed the Bielen is 64, creatinine 2.93, and potassium of 5.7. EKG showed a paced rhythm at a rate of 60. He was given an IV fluid bolus 500 mL, a dose of calcium gluconate, and a dose of Kayexalate. Arrangements were made for admission. Family requested [facility] for the admission. Patient seen and examined at bedside in the emergency department with son present. He states that he has been in his normal state of health. He went to see Dr. Roman for a physical on and was told potassium was high at 6.7. Platelets taken off of Lasix and potassium as his creatinine was also high. He was also given a prescription for Kaopectate which he did not take. He recently returned from a trip to [place]. During that vacation he had low blood sugar at 40 and was taken off of his Glimiperide by the ship doctor. He h as not been on any anything for diabetes since that time. He also had influenza A and completed his course of tamiflu 5 days ago. He has still been taking his cozaar. Missed any other medication doses. Son has been helping him and ensuring that he is taking his medications appropriately. He has 2 daughters who are nurses. Review of Systems Pertinent positives and negatives as discussed in HPI, a complete review of systems was performed and all other systems are negative. Past Medical History Past Medical History: Atrial Fibrillation, Atrial Flutter, Asthma, Coronary Artery Disease (CAD), Heart Failure, Diabetes Mellitus, Deep Vein Thrombosis (DVT), Eye Disorder, GERD/Reflux, Hyperlipidemia, Hypertension, Myocardial Infarction ([place]), Osteoarthritis (OA) Additional Past Medical History / Comment(s): ASTHMA CHILD. Chronic back pain. HX KIDNEY STONE X1. NEUROPATHY IN FEET. SPINAL STENOSIS L3-5. RLS. BPPV, L eye corneal collapse Last Myocardial Infarction Date:: 2003 History of Any Multi-Drug Resistant Organisms: None Reported Past Surgical History: Appendectomy, Coronary Bypass/CABG, Heart Catheterization, Orthopedic Surgery, Pacemaker Additional Past Surgical History / Comment(s): CARDIOVERSION. ORAL SURGERY. TRIPLE BYPASS 2003. CATARACTS. RT KNEE ARTHROSCOPY. BACK INJECTIONS AT [facility] epidural for pain control, Mulitple Lens eye surgery Past Anesthesia/Blood Transfusion Reactions: No Reported Reaction Type of Cardiac Device: Permanent Pacemaker Device Placement Date:: UNKNOWN Past Psychological History: No Psychological Hx Reported Smoking Status: Former smoker Past Alcohol Use History: Rare Past Drug Use History: None Reported - Past Family History Father Family Medical History: Congestive Heart Failure (CHF) Additional Family Medical History / Comment(s): AT AGE 83-CHF Mother Family Medical History: Dementia Additional Family Medical History / Comment(s): MOM AGE 94 -[place]HEIMERS Medications and Allergies Home Medications Medication Instructions Recorded Confirmed Type Aspirin 81 mg PO DAILY 06/13/14 04/02/19 History Cholecalciferol [Vitamin D3 (25 2,000 unit PO DAILY 06/13/14 04/02/19 History Mcg = 1000 Iu)] Hydrocodone/Acetaminophen [[place] 1 tab PO Q6H PRN 06/13/14 04/02/19 History 5-325] Omeprazole [PriLOSEC] 20 mg PO DAILY 06/13/14 04/02/19 History Meclizine [Antivert] 25 mg PO BID 07/26/17 04/02/19 History Metoprolol Tartrate 25 mg PO BID 07/26/17 04/02/19 History traMADol HCL [Ultram] 50 mg PO Q6H PRN 07/26/17 04/02/19 History Budesonide [Pulmicort] 0.5 mg INHALATION RT-BID 12/25/18 04/02/19 History Gabapentin [Neurontin] 300 mg PO TID 12/25/18 04/02/19 History Prednisolone Acetate/Pf 1 drop LEFT EYE BID 12/25/18 04/02/19 History [Prednisolone Acet 1% Eye Drop] guaiFENesin 400 mg PO BID PRN 12/25/18 04/02/19 History Atorvastatin [Lipitor] 20 mg PO HS #30 tab 12/28/18 04/02/19 Rx Losartan [Cozaar] 12.5 mg PO DAILY #30 tab 12/28/18 04/02/19 Rx Ipratropium Nebulized [Atrovent 0.5 mg INHALATION Q6HR PRN 04/02/19 04/02/19 History Nebulized 0.2 MG/ML] Montelukast [Singulair] 10 mg PO HS 04/02/19 04/02/19 History Warfarin [Coumadin] 3 mg PO SUTUWEFRSA 04/02/19 04/02/19 History Warfarin [Coumadin] 4.5 mg PO MOTH 04/02/19 04/02/19 History Allergies Allergy/AdvReac Type Severity Reaction Status Date / Time Penicillins Allergy Swelling Verified 04/02/19 16:20 Physical Exam Osteopathic Statement: *. No significant issues noted on an osteopathic structural exam other than those noted in the History and Physical/Consult. Vitals: Vital Signs Temp Pulse Resp BP Pulse Ox 04/02/19 17:27 62 18 77/36 96 04/02/19 16:35 59 L 18 98/41 94 L 04/02/19 15:49 79/33 04/02/19 14:43 98.2 F 60 18 80/45 98 Intake and Output 04/02/19 04/02/19 04/02/19 06:59 14:59 22:59 Other: Weight 92.578 kg General: non toxic, no distress, appears at stated age, normal weight Derm: no unusual rashes/lesions no unusual ecchymoses, warm, dry Head: atraumatic, normocephalic, symmetric Eyes: EOMI, no lid lag, anicteric sclera, pupils equal round reactive to light ENT: Nose and ears atraumatic, no thrush, no pharyngeal erythema Neck: No thyromegaly, no cervical lymphadenopathy, trachea midline, supple Mouth: no lip lesion, mucus membranes moist Cardiovascular: S1S2 reg, no murmur, positive posterior tibial pulse bilateral, trace pedal edema, capillary refill less than 2 seconds Lungs: decreased breath sounds bilateral, no rhonchi, no rales , no accessory muscle use Abdominal: soft, nontender to palpation, no guarding, no appreciable organomegaly, normal bowel sounds Ext: no gross muscle atrophy, muscle strength 5 out of 5 in all 4 extremities grossly, no contractures, Neuro: CN II-XI grossly intact, light touch intact all 4 extremities, finger to nose within normal limits, Psych: Alert, oriented, appropriate affect Results CBC & Chem 7: 04/02/19 15:35 04/02/19 15:35 Labs: Abnormal Lab Results - Last 24 Hours (Table) 04/02/19 04/02/19 04/02/19 Range/Units 15:35 15:35 15:35 Hgb 12.9 L (13.0-17.5) gm/dL RDW 15.7 H (11.5-15.5) % PT 21.4 H (9.0-12.0) sec INR 2.2 H (<1.2) APTT 33.4 H (22.0-30.0) sec Potassium 5.7 H (3.5-5.1) mmol/L Chloride 108 H (98-107) mmol/L BUN 64 H (9-20) mg/dL Creatinine 2.93 H (0.66-1.25) mg/dL Glucose 119 H (74-99) mg/dL Thrombosis Risk Factor Assmnt - DVT/VTE Prophylaxis DVT/VTE Prophylaxis: Pharmacologic Prophylaxis ordered Assessment and Plan Assessment: Acute renal failure with hyperkalemia - remain off potassium and lasix - stop cozaar - kayexelate and calcium gluconate given - bicarb X 1, 500 cc bolus - repeat labs at 1999 - consult nephro - check UA - rhoades for strict i and O - renal ultrasound Hypotension with history of hypertension, undetermined cause - check UA and CXR - Hold all BP meds - IV fluids - follow BP DM 2 - follow BS - check A1C - Hx of recent hypoglycemia Chronic diastolic CHF EF 55-60% without exacerbation - hold lasix, IVF - Hold ARB and BB - strict I and O daily weights - needs fluids due to hypotension Atrial fibrillation with therapeutic Coumadin coagulopathy -Resume Coumadin -Follow INR -Hold metoprolol -Telemetry Chronic: Dyslipidemia Osteoarthritis Myocardial infarction The patient is admitted with an anticipated greater than 2 midnight stay for evaluation of ASHLEY and renal failure. Surrogate decision-maker: Daughter Lupe CODE STATUS:See ACP documentation DVT prophylaxis: coumadin Discussed with: patient, nursing, family, ed physician Anticipated discharge date: 3-[address]: home with home health A total of 75 minutes was spent on the care of this complex patient more than 50% of the time was spent in counseling and care coordination.
[2019-04-02] MEDS ORDERED: WARFARIN 3 MG TAB PO ONE (19:00)
[2019-04-02 20:24] LABS: Amorphous Sediment,Urine Rare /hpf; Appearance,Urine Clear (Clear); Bilirubin,Urine Negative (Negative); Blood,Urine Moderate (Negative); Color,Urine Light Yellow; Glucose,Urine (UA) Negative (Negative); Ketones,Urine Negative (Negative); Leukocyte Esterase,Urine Negative (Negative); Mucus,Urine Rare /hpf; Nitrite,Urine Negative (Negative); Protein,Urine Trace (Negative); RBC,Urine 35 /hpf (0-5); Urobilinogen,Urine <2.0 mg/dL (<2.0); WBC,Urine 1 /hpf (0-5)
[2019-04-02 20:39] LABS: Calcium 8.6 mg/dL (8.4-10.2); Potassium 5.3 mmol/L (3.5-5.1)
[2019-04-02] MEDS: BUDESONIDE 0.5 MG/2 ML NEBU INHALATION SCH (21:00)
[2019-04-02 21:06] LABS: Glucose,Whole Blood 85 mg/dL (75-99)
[2019-04-02] MEDS ORDERED: SODIUM CHLORIDE 0.9% 1,000 ML IV ONE (21:17)
[2019-04-02] MEDS ORDERED: DEXTROSE 50% SYRINGE 50 ML IVP STA (21:17)
[2019-04-02] MEDS ORDERED: INSULIN REGULAR 100 UNIT/ML VIAL IV ONE (21:17)
[2019-04-02] MEDS: MONTELUKAST 10 MG TAB PO SCH (22:27)
[2019-04-02] MEDS: ATORVASTATIN 20 MG TAB PO SCH (22:27)
[2019-04-02] MEDS: prednisoLONE ACETATE 1% OPHTH DROPS 5 ML BTL LEFT EYE SCH (22:28)
[2019-04-03] MEDS: SODIUM CHLORIDE 0.9% 1,000 ML IV SCH (01:30)
[2019-04-03 06:32] LABS: Glucose,Whole Blood 67 mg/dL (75-99)
[2019-04-03] MEDS: PANTOPRAZOLE 40 MG TABLET PO SCH (06:36)
[2019-04-03 06:59] LABS: Glucose,Whole Blood 65 mg/dL (75-99)
[2019-04-03 07:05] LABS: Anisocytosis Slight; HGB 11.8 gm/dL (13.0-17.5); MCH 29.3 pg (25.0-35.0); MCV 91.5 fL (80.0-100.0); Mean Platelet Volume 7.3; Platelet Count 243 k/uL (150-450); RBC 4.04 m/uL (4.30-5.90); RDW 16.4 % (11.5-15.5); WBC 7.7 k/uL (3.8-10.6)
[2019-04-03 07:25] LABS: Calcium 8.5 mg/dL (8.4-10.2); Potassium 5.4 mmol/L (3.5-5.1)
[2019-04-03 07:26] LABS: Glucose,Whole Blood 79 mg/dL (75-99)
[2019-04-03] MEDS ORDERED: FUROSEMIDE 10 MG/ML 4 ML VIAL IV STA (07:53)
[2019-04-03] MEDS ORDERED: SODIUM BICARB 8.4% 50 ML SYR (1 MEQ/ML) IV STA (07:53)
[2019-04-03 08:09] LABS: INR 2.1 (<1.2); Prothrombin Time 20.3 sec (9.0-12.0)
[2019-04-03] MEDS: prednisoLONE ACETATE 1% OPHTH DROPS 5 ML BTL LEFT EYE SCH ×2 (08:36→20:12)
[2019-04-03] MEDS: CHOLECALCIFEROL 1,000 UNIT TAB PO SCH (08:36)
[2019-04-03] MEDS: DEXTROSE 5%-0.9% NACL 1,000 ML IV SCH ×2 (09:19→22:00)
[2019-04-03] MEDS: IPRATROPIUM 0.5 MG/2.5 ML NEBU INHALATION PRN ×2 (09:21→19:11)
[2019-04-03] MEDS: BUDESONIDE 0.5 MG/2 ML NEBU INHALATION SCH ×2 (09:21→19:11)
[2019-04-03 11:38] LABS: Glucose,Whole Blood 107 mg/dL (75-99)
[2019-04-03] MEDS: ASPIRIN 81 MG PO SCH (12:06)
[2019-04-03 12:37] LABS: Hemoglobin A1C 7.5 % (4.0-6.0)
--- NOTE | 2019-04-03 14:31 | US ---
EXAMINATION TYPE: US renals and bladder DATE OF EXAM: 04/03/2019 COMPARISON: 05/30/2015 CLINICAL HISTORY: ASHLEY. EXAM MEASUREMENTS: Right Kidney: 10.0 x 5.6 x 6.2 cm Left Kidney: 9.8 x 5.4 x 6.2 cm Right Kidney: No hydronephrosis or masses seen Left Kidney: Obscured by overlying bowel gas Bladder: slightly distended. No definite abnormality. Bilateral Jets seen: No IMPRESSION: Left kidney is not well seen. No obvious hydronephrosis or nephrolithiasis on the right.
[2019-04-03 15:07] LABS: Calcium 8.3 mg/dL (8.4-10.2); Potassium 4.4 mmol/L (3.5-5.1)
--- NOTE | 2019-04-03 16:31 | CONS ---
CONSULTATION REASON FOR CONSULT: Renal failure. HISTORY OF PRESENT ILLNESS: The patient is an 84-year-old male who was admitted to the hospital with complaints of weakness. The patient also had labs done as outpatient which showed evidence of hyperkalemia with potassium at 6.7, and therefore he was advised admission. The patient had been on potassium supplementation prior to admission and along with diuretics after his recent admission for CHF exacerbation and volume overload in November of 2018. The initial blood pressure was low with systolic in the 80s when patient came in. He states he has lost about 30 pounds since November since he was started on diuretics. The patient has had poor oral intake as well. He denied any prior history of kidney diseases. The patient was not on any MYNOR inhibitors prior to admission. Serum potassium was 5.7, and it was down to 5.4 this morning. The patient states he is voiding well. He denies any use of nonsteroidal anti-inflammatory agents prior to admission. PAST MEDICAL HISTORY: Hypertension, recent admission for heart failure in November of 2018 at which time the patient was started on diuretics. He also has a history of atrial fibrillation, type 2 diabetes, history of DVT, gastroesophageal reflux disease, hyperlipidemia, history of OH and atrial flutter, asthma, chronic back pain. History of nephrolithiasis, spinal stenosis, benign positional vertigo. PAST SURGICAL HISTORY: Appendectomy, coronary artery bypass surgery, cardiac catheterization, pacemaker placement, right knee arthroscopy, back injections, eye surgeries. SOCIAL HISTORY: Patient is a former smoker. No history of drug abuse or alcohol abuse. MEDICATIONS: Medications at home prior to admission include vitamin D, aspirin, Prilosec, Antivert, metoprolol, Ultram, Pulmicort, Neurontin, Lipitor, Cozaar, Singulair, Coumadin. ALLERGIES: Include PENICILLIN, which causes swelling. REVIEW OF SYSTEMS: As per HPI. Other systems negative for any fever, chills, nausea, vomiting or diarrhea. PHYSICAL EXAMINATION: Patient is currently comfortable, awake, alert, oriented x3, not in any acute distress. Blood pressure this morning was 98/50, heart rate 64 per minute. He is afebrile. Examination of the heart S1, S2. Examination of the lungs, bilateral breath sounds are heard. Abdomen is soft, nontender. Examination of lower extremities shows no evidence of edema. Chronic skin changes as seen. MANAGER COMPENSATION exam is grossly intact. LABS: Show sodium of 142, potassium 5.4, chloride 113, BUN 51, serum creatinine 2.39, calcium 8.5, hemoglobin 11.8. ASSESSMENT: 1. Acute kidney injury prerenal renal function slowly improving. The patient has good urine output. He is maintained on IV fluids which I will continue. Continue to hold off on antihypertensive medications including angiotensin receptor blockers. 2. Hyperkalemia associated with acute kidney injury, use of ARBS prior to admission along with potassium supplementation with diuretics. Serum potassium has improved. I would avoid any further Kayexalate unless the potassium worsens. Expect improvement in the potassium with improving renal function. Maintain patient on low-potassium diet and avoid hyperglycemia. The patient's blood sugar is actually running on the lower side. 3. Chronic kidney disease with previous creatinine at 1.3 mg/dL in January of 2019. UA shows trace protein and moderate blood. This will need further workup as outpatient. Etiology for CKD is likely nephrosclerosis. 4. Hypotension mostly hypovolemic. 5. History of diastolic heart failure. 6. Atrial fibrillation with controlled ventricular response maintained on anticoagulation. PLAN: Continue off of Cozaar. Maintain patient on IV fluids. Change to D5 0.9 as blood sugars are running on the lower side and repeat labs in a.m. Avoid Kayexalate unless potassium is worse. Check imaging of the kidneys and patient will need repeat UA down the road. Thank you for this consultation. We will continue to follow the patient with you during his hospitalization. MMODL / IJN: [id number] /
[2019-04-03 16:51] LABS: Glucose,Whole Blood 117 mg/dL (75-99)
--- NOTE | 2019-04-03 18:22 | HP ---
HISTORY AND PHYSICAL DATE OF ADMISSION: 04/02/2019 CHIEF COMPLAINT: Weakness. HISTORY OF PRESENT ILLNESS: This is another admission for this 84-year-old white male who has a history of hypertension, diabetes, and congestive heart failure. He also has significant problem with spinal stenosis. He has had difficulty managing his heart failure over the last several months. He just came back from a trip he was on and felt relatively good. When he came back to the office, however, it was noted that he had lost around 7 pounds and was dehydrated. He also was feeling lightheaded and he had a persistent dry cough. Looking back over the last month, his GFR had dropped. Laboratory studies were obtained. His potassium came back elevated while he was in the office because appeared to be dehydration, he was told to stop his Aldactone and drop his Lasix from 40-20. His laboratory studies came back with his potassium elevated and he was called to stop taking the Lasix and the prescription was sent in for what was supposed to be Kayexalate, but in error, Kaopectate was sent. When he went to the pharmacy, this was explained and he became concerned and went to the emergency room. There his potassium was slightly lower, and he was admitted. REVIEW OF SYSTEMS: He has had no focal neurologic deficits, problems with vision or hearing, hemoptysis, orthopnea, abdominal pain, nausea, vomiting, diarrhea, melena, hematochezia, jaundice, hematuria, frequency, urgency and dysuria. He was not having any muscle cramps. Past medical history, family history, and personal and social history demonstrated that he cannot take quinolones, Phenergan with codeine and penicillin. MEDICATIONS: He has been on include atorvastatin 20 mg q.h.s., metoprolol 25 mg twice a day, baclofen 5 mg q.h.s., warfarin 3 mg once a day, losartan 25 mg 1/2 tablet a day, omeprazole 20 mg once a day, fluticasone nasal spray daily, gabapentin 300 mg once a day, tramadol 50 mg q.h.s. p.r.n., Vicodin 5/325 q.i.d. p.r.n., 81 mg of aspirin. The remainder of history is unremarkable. PHYSICAL EXAM: Blood pressure 126/78, pulse of 60 and regular. Respirations 16. He is afebrile. GENERAL: He appeared to be slightly overweight. He was dehydrated. Skin color is normal. Head, ears, eyes, nose, mouth, and throat were normal. Neck veins not distended. Chest demonstrates scattered rhonchi and rales. Cardiac exam demonstrated what sounded like sinus rhythm and no murmurs or extra sounds. There was an S4. The abdomen is soft and nontender without any visceromegaly or masses. Bowel sounds are present. Extremities: Normal. There is no edema. Neurological he is intact. IMPRESSION: 1. Dehydration. 2. Hyperkalemia. 3. Prerenal azotemia. 4. Chronic kidney disease. 5. History of hypertension. 6. History of Noninsulin dependent diabetes mellitus. 7. Spinal stenosis. PLAN: 1. Bed rest. 2. IV fluids. 3. Correct hyperkalemia. 4. Consult with Nephrology. ADRIA / PUMA: [id number] /
--- NOTE | 2019-04-03 18:26 | P.PN ---
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 Apparently patient had been in Dr. Londono's office on and had blood work drawn. He was called and told that his potassium level was elevated at 6.7. He was told to stop his Lasix and potassium supplementation. He was given a prescription for Kaopectate which he has not taken. Family was concerned about what his potassium level was therefore presented to the ER. Patient underwent an extensive evaluation in the emergency department. He was found to be hypotensive with blood pressure of 80/45. Initial laboratory analysis revealed a BUN is 64, creatinine 2.93, and potassium of 5.7. EKG showed a paced rhythm at a rate of 60. He was given an IV fluid bolus 500 mL, a dose of calcium gluconate, and a dose of Kayexalate. Arrangements were made for admission. Family requested [facility] for the admission. He was given a dose of sodium bicarb. He started on IV fluids. His Lasix, Cozaar, and potassium were held. His potassium was checked several hours later was down to 5.4. At that point in time he was given 10 units of regular insulin followed by Dr. Rivera's. After that he did have some difficulty with hypoglycemia which was able to be controlled with eating. By the morning after admission he was feeling better. Patient seen and examined at bedside. Denies any chest pain, shortness breath, nausea, vomiting, or diarrhea. Daughter is present at bedside and states that patient has been trying but has lost 30 pounds over the last several months. They would appreciate a dietitian consult. Objective - Vital Signs Vital signs: Vital Signs Temp 98.3 F 04/03/19 12:00 Pulse 60 04/03/19 16:00 Resp 18 04/03/19 16:00 BP 122/66 04/03/19 12:00 Pulse Ox 95 04/03/19 08:00 Intake & Output 04/02/19 04/03/19 04/03/19 18:59 06:59 18:59 Intake Total 1320 480 Output Total 1999 1749 Balance -680 -1270 Weight 92.578 kg 95.2 kg Intake: Intake, IV Titration 1320 Amount Sodium Chloride 0.9% 1, 320 000 ml @ 75 mls/hr IV . [id number] COUNT INCLUDES THE [facility] Rx#:[id number] Sodium Chloride 0.9% 1, 1000 000 ml @ 999 mls/hr IV . Q1H1M ONE Rx#:[id number] Oral 480 Output: Urine 1999 1749 Other: Voiding Method Urinal Urinal # Voids 3 # Bowel Movements 1 - Exam General: non toxic, no distress, appears at stated age Derm: warm, dry Head: atraumatic, normocephalic, symmetric, heard of hearing Eyes: EOMI, no lid lag, anicteric sclera Mouth: no lip lesion, mucus membranes moist Cardiovascular: S1S2 reg, no murmur, positive posterior tibial pulse bilateral, Lungs: CTA bilateral, no rhonchi, no rales , no accessory muscle use Abdominal: soft, nontender to palpation, no guarding, no appreciable organomegaly Ext: no gross muscle atrophy, trace left edema, no contractures Neuro: CN II-XI grossly intact, no focal neuro deficits Psych: Alert, oriented, appropriate affect - Labs CBC & Chem 7: 04/03/19 06:39 04/03/19 14:33 Labs: Abnormal Lab Results - Last 24 Hours (Table) 04/02/19 04/02/19 04/03/19 Range/Units 20:00 20:10 06:30 RBC (4.30-5.90) m/uL Hgb (13.0-17.5) gm/dL Hct (39.0-53.0) % RDW (11.5-15.5) % PT (9.0-12.0) sec INR (<1.2) Potassium 5.3 H (3.5-5.1) mmol/L Chloride 110 H (98-107) mmol/L BUN 59 H (9-20) mg/dL Creatinine 2.59 H (0.66-1.25) mg/dL Glucose (74-99) mg/dL POC Glucose (mg/dL) 67 L (75-99) mg/dL Hemoglobin A1c (4.0-6.0) % Calcium (8.4-10.2) mg/dL Urine Protein Trace H (Negative) Urine Blood Moderate H (Negative) Urine RBC 35 H (0-5) /hpf Amorphous Sediment Rare H (None) /hpf Urine Mucus Rare H (None) /hpf 04/03/19 04/03/19 04/03/19 Range/Units 06:39 06:39 06:39 RBC 4.04 L (4.30-5.90) m/uL Hgb 11.8 L (13.0-17.5) gm/dL Hct 37.0 L (39.0-53.0) % RDW 16.4 H (11.5-15.5) % PT (9.0-12.0) sec INR (<1.2) Potassium 5.4 H (3.5-5.1) mmol/L Chloride 113 H (98-107) mmol/L BUN 51 H (9-20) mg/dL Creatinine 2.39 H (0.66-1.25) mg/dL Glucose (74-99) mg/dL POC Glucose (mg/dL) (75-99) mg/dL Hemoglobin A1c 7.5 H (4.0-6.0) % Calcium (8.4-10.2) mg/dL Urine Protein (Negative) Urine Blood (Negative) Urine RBC (0-5) /hpf Amorphous Sediment (None) /hpf Urine Mucus (None) /hpf 04/03/19 04/03/19 04/03/19 Range/Units 06:39 06:57 11:35 RBC (4.30-5.90) m/uL Hgb (13.0-17.5) gm/dL Hct (39.0-53.0) % RDW (11.5-15.5) % PT 20.3 H (9.0-12.0) sec INR 2.1 H (<1.2) Potassium (3.5-5.1) mmol/L Chloride (98-107) mmol/L BUN (9-20) mg/dL Creatinine (0.66-1.25) mg/dL Glucose (74-99) mg/dL POC Glucose (mg/dL) 65 L 107 H (75-99) mg/dL Hemoglobin A1c (4.0-6.0) % Calcium (8.4-10.2) mg/dL Urine Protein (Negative) Urine Blood (Negative) Urine RBC (0-5) /hpf Amorphous Sediment (None) /hpf Urine Mucus (None) /hpf 04/03/19 04/03/19 Range/Units 14:33 16:44 RBC (4.30-5.90) m/uL Hgb (13.0-17.5) gm/dL Hct (39.0-53.0) % RDW (11.5-15.5) % PT (9.0-12.0) sec INR (<1.2) Potassium (3.5-5.1) mmol/L Chloride (98-107) mmol/L BUN 47 H (9-20) mg/dL Creatinine 2.25 H (0.66-1.25) mg/dL Glucose 142 H (74-99) mg/dL POC Glucose (mg/dL) 117 H (75-99) mg/dL Hemoglobin A1c (4.0-6.0) % Calcium 8.3 L (8.4-10.2) mg/dL Urine Protein (Negative) Urine Blood (Negative) Urine RBC (0-5) /hpf Amorphous Sediment (None) /hpf Urine Mucus (None) /hpf Assessment and Plan Assessment: Acute renal failure with hyperkalemia, CKD with baseline CR 1.3 - remain off potassium, lasix, and cozaar - stop cozaar -Lasix X 1 today, continue IVF - repeat labs at 1400 - Nephro recs appreciated - UA with protein and trace blood, will need repeat as outpatient - Post void residual 92 - renal ultrasound no hydraonephrosis noted. Hypotension, resolved with history of hypertension, undetermined cause - Hold all BP meds - IV fluids decreased - follow BP DM 2 with hypoglycemia - hypoglycemia due to insulin given for potassium, D5 0.9 per nephro continue today - follow BS - A1C pending - Hx of recent hypoglycemia prior to stopping glimiperide Chronic diastolic CHF EF 55-60% without exacerbation - hold lasix, IVF - Hold ARB and BB - strict I and O daily weights - needs fluids due to hypotension Atrial fibrillation with therapeutic Coumadin coagulopathy -Resume Coumadin -Follow INR -Hold metoprolol -Telemetry Chronic: Dyslipidemia Osteoarthritis Myocardial infarction DVT prophylaxis: coumadin Discussed with: patient, nursing, family, Anticipated discharge date: 2-[address]: home with home health A total of 35 minutes was spent on the care of this complex patient more than 50% of the time was spent in counseling and care coordination.
--- NOTE | 2019-04-03 18:28 | PN ---
PROGRESS NOTE DATE OF SERVICE: 04/03/2019 CHIEF COMPLAINT: Hyperkalemia, dehydration, CKD and prerenal azotemia. HISTORY OF PRESENT ILLNESS: This gentleman continues to feel weak. He is also very upset about the mistake in medications regarding the Kayexalate. He wishes to be taking care of by another physician. This is understood and he will be transferred to another attending. MMDEUCE / IJN: [id number] /
[2019-04-03] MEDS ORDERED: WARFARIN 3 MG TAB PO ONE (18:30)
[2019-04-03] MEDS: ATORVASTATIN 20 MG TAB PO SCH (20:12)
[2019-04-03] MEDS: MONTELUKAST 10 MG TAB PO SCH (20:12)
[2019-04-03 21:00] LABS: Glucose,Whole Blood 156 mg/dL (75-99)
[2019-04-04 06:25] LABS: Glucose,Whole Blood 93 mg/dL (75-99)
[2019-04-04] MEDS: PANTOPRAZOLE 40 MG TABLET PO SCH (06:32)
[2019-04-04 08:05] LABS: HCT 38.5 % (39.0-53.0); HGB 12.5 gm/dL (13.0-17.5); MCH 29.4 pg (25.0-35.0); MCHC 32.4 g/dL (31.0-37.0); MCV 90.8 fL (80.0-100.0); Mean Platelet Volume 6.9; Platelet Count 253 k/uL (150-450); RBC 4.24 m/uL (4.30-5.90); RDW 15.9 % (11.5-15.5); WBC 9.5 k/uL (3.8-10.6)
[2019-04-04 08:13] LABS: INR 1.9 (<1.2); Prothrombin Time 18.4 sec (9.0-12.0)
[2019-04-04 08:31] LABS: Calcium 8.6 mg/dL (8.4-10.2); Potassium 4.3 mmol/L (3.5-5.1)
[2019-04-04] MEDS: CHOLECALCIFEROL 1,000 UNIT TAB PO SCH (08:47)
[2019-04-04] MEDS: prednisoLONE ACETATE 1% OPHTH DROPS 5 ML BTL LEFT EYE SCH ×2 (08:47→20:59)
[2019-04-04] MEDS: ASPIRIN 81 MG PO SCH (08:47)
[2019-04-04] MEDS: BUDESONIDE 0.5 MG/2 ML NEBU INHALATION SCH ×2 (10:00→19:21)
[2019-04-04 10:19] VITALS: BMI 30.7
[2019-04-04 12:26] LABS: Glucose,Whole Blood 96 mg/dL (75-99)
--- NOTE | 2019-04-04 16:29 | PN ---
PROGRESS NOTE Patient is seen for followup for acute kidney injury. He was admitted with hypovolemia and acute kidney injury. Diuretics have been held. Patient's angiotensin receptor blockers have been held as well. Patient received fluids initially. Currently he is off of IV fluids. He has had good urine output. Creatinine is down from 2.9 to 2.16. Previous creatinine 1.3 on 01/26/2019. Blood pressure remains on the lower side. Overall patient states he is feeling better. On examination this morning, blood pressure was 127/59, heart rate 61 per minute. He is afebrile. EXAMINATION OF THE HEART: S1 and S2. EXAMINATION OF LUNGS: Bilateral breath sounds are heard. ABDOMEN: Soft, non-tender. Examination of lower extremities shows no evidence of edema. Labs show sodium 142, potassium 4.3, BUN 35, serum creatinine 2.16, calcium 8.6. UA showed trace protein, moderate blood. ASSESSMENT: 1. Acute kidney injury, prerenal, associated with volume depletion and hypotension and hypoperfusion, currently improving. Patient is off of IV fluids, which is okay. I have encouraged him to increase his oral intake. We will continue to hold off on the diuretics as well as angiotensin receptor blockers and other anti-hypertensive medications, as blood pressure remains low. Patient is advised to avoid use of any nonsteroidal anti-inflammatory agents post discharge. 2. Chronic kidney disease. Previous creatinine 1.1 to 1.3 mg/dL, mostly nephrosclerosis. Ultrasound is unremarkable and UA shows trace protein. We will need to repeat a urinalysis as outpatient. 3. Hypotension, mostly hypovolemic, currently improved. 4. Hyperkalemia acute kidney injury prior to admission with use of potassium supplementation, currently improved. 5. Atrial fibrillation with controlled ventricular response, maintained on anticoagulation. 6. History of diastolic heart failure. PLAN: Continue off of IV fluids. Continue off of angiotensin receptor blockers and diuretics. Repeat labs in a.m. Possible discharge tomorrow. Patient will need close followup resume the diuretics and anti-hypertensive medication, depending on the blood pressure and volume status. MMODL / IJN: [id number] /
--- NOTE | 2019-04-04 16:38 | P.PN ---
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 Apparently patient had been in Dr. Londono's office on and had blood work drawn. He was called and told that his potassium level was elevated at 6.7. He was told to stop his Lasix and potassium supplementation. He was given a prescription for Kaopectate which he has not taken. Family was concerned about what his potassium level was therefore presented to the ER. Patient underwent an extensive evaluation in the emergency department. He was found to be hypotensive with blood pressure of 80/45. Initial laboratory analysis revealed a BUN is 64, creatinine 2.93, and potassium of 5.7. EKG showed a paced rhythm at a rate of 60. He was given an IV fluid bolus 500 mL, a dose of calcium gluconate, and a dose of Kayexalate. Arrangements were made for admission. Family requested [facility] for the admission. He was given a dose of sodium bicarb. He started on IV fluids. His Lasix, Cozaar, and potassium were held. His potassium was checked several hours later was down to 5.4. At that point in time he was given 10 units of regular insulin followed by dextrose. After that he did have some difficulty with hypoglycemia which was able to be controlled with eating. By the morning after admission he was feeling better. His potassium was high and he was given a dose of lasix. He was continued on IVF. He was seen by nephrology. Who was in agreement with current plan of care. Renal ultrasound and post-void residual ne gative. Patient seen and examined at bedside. Feeling well today. Denies any chest pain, shortness of breath, wheezing, lower extremity edema, nausea, vomiting, or diarrhea. Had a bowel movement yesterday. Patient's daughter at bedside. We discussed that we will monitor the patient off of IV fluids today, if his renal function remained stable likely home tomorrow. He will need home health with telehealth as his Lasix, Aldactone, and Cozaar may need to be restarted on the road. There aware of the importance of following up with nephrology. Objective - Vital Signs Vital signs: Vital Signs Temp 97.7 F 04/04/19 15:44 Pulse 61 04/04/19 15:44 Resp 16 04/04/19 15:44 BP 128/59 04/04/19 15:44 Pulse Ox 93 L 04/04/19 15:44 Intake & Output 04/03/19 04/04/19 04/04/19 18:59 06:59 18:59 Intake Total 480 150 380 Output Total 1750 400 Balance -1270 -250 380 Weight 94.4 kg 94.4 kg Intake: Oral 480 150 380 Output: Urine 1750 400 Other: Voiding Method Urinal Urinal Urinal # Voids 0 2 # Bowel Movements 1 - Exam General: non toxic, no distress, appears at stated age Derm: warm, dry Head: atraumatic, normocephalic, symmetric, heard of hearing Eyes: EOMI, no lid lag, anicteric sclera Mouth: no lip lesion, mucus membranes moist Cardiovascular: S1S2 reg, no murmur, positive posterior tibial pulse bilateral, Lungs: CTA bilateral, no rhonchi, no rales , no accessory muscle use Abdominal: soft, nontender to palpation, no guarding, no appreciable organomegaly Ext: no gross muscle atrophy, no edema, no contractures Neuro: CN II-XI grossly intact, no focal neuro deficits Psych: Alert, oriented, appropriate affect - Labs CBC & Chem 7: 04/04/19 07:10 04/04/19 07:10 Labs: Abnormal Lab Results - Last 24 Hours (Table) 04/03/19 04/03/19 04/04/19 Range/Units 16:44 20:46 07:10 RBC (4.30-5.90) m/uL Hgb (13.0-17.5) gm/dL Hct (39.0-53.0) % RDW (11.5-15.5) % PT 18.4 H (9.0-12.0) sec INR 1.9 H (<1.2) Chloride (98-107) mmol/L BUN (9-20) mg/dL Creatinine (0.66-1.25) mg/dL Glucose (74-99) mg/dL POC Glucose (mg/dL) 117 H 156 H (75-99) mg/dL 04/04/19 04/04/19 Range/Units 07:10 07:10 RBC 4.24 L (4.30-5.90) m/uL Hgb 12.5 L (13.0-17.5) gm/dL Hct 38.5 L (39.0-53.0) % RDW 15.9 H (11.5-15.5) % PT (9.0-12.0) sec INR (<1.2) Chloride 109 H (98-107) mmol/L BUN 35 H (9-20) mg/dL Creatinine 2.16 H (0.66-1.25) mg/dL Glucose 133 H (74-99) mg/dL POC Glucose (mg/dL) (75-99) mg/dL Assessment and Plan Assessment: Acute renal failure with CKD with baseline Cr 1.3 - remain off potassium, lasix, and cozaar - off IVF - Nephro recs appreciated - UA with protein and trace blood, will need repeat as outpatient - Post void residual 92 - renal ultrasound no hydraonephrosis noted. - repeat labs in AM DM 2 - follow BS - A1C 7.5 - Hx of recent hypoglycemia prior to stopping glimiperide - Recommend close accuchecks on discharge Chronic diastolic CHF EF 55-60% without exacerbation - hold lasix - Hold ARB - resume metoprolol - strict I and O daily weights - required fluids due to hypotension Atrial fibrillation with therapeutic Coumadin coagulopathy -Coumadin 4 mg tonight -Follow INR -Hold metoprolol -Telemetry Chronic: Dyslipidemia Osteoarthritis Myocardial infarction hyperkalemia, resolved Hypotension, resolved hypoglycemia, resolved to GMF DVT prophylaxis: coumadin Discussed with: patient, nursing, family, Anticipated discharge date: in [place] if Cr stable Anticipated discharge place: home with home health, [facility] A total of 35 minutes was spent on the care of this complex patient more than 50% of the time was spent in counseling and care coordination.
[2019-04-04 16:58] LABS: Glucose,Whole Blood 120 mg/dL (75-99)
[2019-04-04] MEDS ORDERED: WARFARIN 2 MG TAB PO ONE (18:00)
[2019-04-04 20:52] LABS: Glucose,Whole Blood 138 mg/dL (75-99)
[2019-04-04] MEDS: METOPROLOL TARTRATE 25 MG TAB PO SCH (20:58)
[2019-04-04] MEDS: ATORVASTATIN 20 MG TAB PO SCH (20:59)
[2019-04-04] MEDS: MONTELUKAST 10 MG TAB PO SCH (20:59)
[2019-04-05] MEDS: BUDESONIDE 0.5 MG/2 ML NEBU INHALATION SCH (07:21)
[2019-04-05 07:47] LABS: Glucose,Whole Blood 100 mg/dL (75-99)
[2019-04-05 08:01] LABS: INR 2.1 (<1.2)
[2019-04-05 08:09] LABS: Potassium 4.3 mmol/L (3.5-5.1)
[2019-04-05] MEDS: PANTOPRAZOLE 40 MG TABLET PO SCH (08:10)
[2019-04-05] MEDS: CHOLECALCIFEROL 1,000 UNIT TAB PO SCH (08:10)
[2019-04-05] MEDS: ASPIRIN 81 MG PO SCH (08:10)
[2019-04-05] MEDS: prednisoLONE ACETATE 1% OPHTH DROPS 5 ML BTL LEFT EYE SCH (08:10)
[2019-04-05] MEDS: METOPROLOL TARTRATE 25 MG TAB PO SCH (08:13)
[2019-04-05 08:35] VITALS: BP 150/70; PULSE 60; RESP 16; TEMP 98.2
--- NOTE | 2019-04-05 11:25 | P.DS ---
Providers Date of admission: 04/02/19 16:49 Expected date of discharge: 04/05/19 Attending physician: Tanya Akers DO Consults: 04/02/19 16:46 Consult Physician Routine Consulting Provider: Roxana Krishnan Consult Reason/Comments: Acute on chronic renal failure, hyperkalemia Do you want consulting provider notified?: Yes Primary care physician: Thong Roman Hospital Course: Discharge diagnoses Acute kidney injury superimposed on chronic kidney disease stage III Type 2 diabetes Chronic compensated diastolic CHF Atrial fibrillation currently on anticoagulation with Coumadin Hyperkalemia resolved Hypertension resolved hypoglycemia resolved Patient is an 84-year-old male past medical history of congestive heart failure with ejection fraction 50-55%, myocardial infarction with prior triple vessel coronary artery bypass grafting, hypertension, diabetes mellitus type 2 with recent episode of hypoglycemia, and dyslipidemia who presented to the ER with concerns over his potassium level. Apparently patient had been in Dr. Londono's office on and had blood work drawn. He was called and told that his potassium level was elevated at 6.7. He was told to stop his Lasix and potassium supplementation. He was given a prescription for Kaopectate which he has not taken. Family was concerned about what his potassium level was therefore presented to the ER. Patient underwent an extensive evaluation in the emergency department. He was found to be hypotensive with blood pressure of 80/45. Initial laboratory analysis revealed a BUN is 64, creatinine 2.93, and potassium of 5.7. EKG showed a paced rhythm at a rate of 60. He was given an IV fluid bolus 500 mL, a dose of calcium gluconate, and a dose of Kayexalate. Arrangements were made for admission. Family requested [facility] for the admission. He was given a dose of sodium bicarb. He started on IV fluids. His Lasix, Cozaar, and potassium were held. His potassium was checked several hours later was down to 5.4. At that point in time he was given 10 units of regular insulin followed by dextrose. After that he did have some difficulty with hypoglycemia which was able to be controlled with eating. By the morning after admission he was feeling better. His potassium was high and he was given a dose of lasix. He was continued on IVF on till discharge. He was seen by nephrology. Who was in agreement with current plan of care. Renal ultrasound and post-void residual negative.Subsequently discharged home in stable condition and instructed to follow-up with his PCP and nephrology. This discharge process took approximately 35 minutes Discharge physical Constitutional: No acute distress, conversant, pleasant Eyes: Anicteric sclerae, moist conjunctiva, no lid-lag, PERRLA ENMT: NC/AT,Oropharynx clear, no erythema, exudates Neck:Supple, FROM, no masses, or JVD, No carotid bruits; No thyromegaly Lungs: Clear to auscultation, Clear to percussion, Normal respiratory effort, no accessory muscle use Cardiovascular: Heart regular in rate and rhythm, No murmurs, gallops, or rubs no peripheral edema Abdominal: Soft Nontender, nom distended, no guarding, no rebound or rigidity, Normoactive bowel sounds No hepatomegaly, No splenomegaly, No palpable mass No abdominal wall hernia noted Skin: Normal temperature, tone, texture, turgor, No induration No subcutaneous nodules, No rash, lesions, No ulcers Extremities:No digital cyanosis No clubbing, Pedal pulses intact and symmetrical Radial pulses intact and symmetrical Normal gait and station, No calf tenderness Psychiatric: Alert and oriented to person, place and time, Appropriate affect Intact judgement Neuro: Muscles Strength 5/5 in all 4 extremities, Sensation to light touch grossly present throughout, Cranial nerves II-XII grossly intact. No focal sensory deficits Patient Condition at Discharge: Good Plan - Discharge Summary New Discharge Prescriptions: Continue Ipratropium Nebulized [Atrovent Nebulized 0.2 MG/ML] 0.5 mg INHALATION Q6HR PRN PRN Reason: Shortness Of Breath Warfarin [Coumadin] 4.5 mg PO MOTH Montelukast [Singulair] 10 mg PO HS Warfarin [Coumadin] 3 mg PO SUTUWEFRSA Discontinued Losartan [Cozaar] 12.5 mg PO DAILY #30 tab No Action Hydrocodone/Acetaminophen [[place] 5-325] 1 tab PO Q6H PRN PRN Reason: Pain Omeprazole [PriLOSEC] 20 mg PO DAILY Aspirin 81 mg PO DAILY Cholecalciferol [Vitamin D3 (25 Mcg = 1000 Iu)] 2,000 unit PO DAILY traMADol HCL [Ultram] 50 mg PO Q6H PRN PRN Reason: Pain Meclizine [Antivert] 25 mg PO BID Metoprolol Tartrate 25 mg PO BID shenaiFENesin 400 mg PO BID PRN PRN Reason: Cough Prednisolone Acetate/Pf [Prednisolone Acet 1% Eye Drop] 1 drop LEFT EYE BID Budesonide [Pulmicort] 0.5 mg INHALATION RT-BID Gabapentin [Neurontin] 300 mg PO TID Atorvastatin [Lipitor] 20 mg PO HS #30 tab Discharge Medication List Aspirin 81 mg PO DAILY 06/13/14 [History] Cholecalciferol [Vitamin D3 (25 Mcg = 1000 Iu)] 2,000 unit PO DAILY 06/13/14 [History] Hydrocodone/Acetaminophen [[place] 5-325] 1 tab PO Q6H PRN 06/13/14 [History] Omeprazole [PriLOSEC] 20 mg PO DAILY 06/13/14 [History] Meclizine [Antivert] 25 mg PO BID 07/26/17 [History] Metoprolol Tartrate 25 mg PO BID 07/26/17 [History] traMADol HCL [Ultram] 50 mg PO Q6H PRN 07/26/17 [History] Budesonide [Pulmicort] 0.5 mg INHALATION RT-BID 12/25/18 [History] Gabapentin [Neurontin] 300 mg PO TID 12/25/18 [History] Prednisolone Acetate/Pf [Prednisolone Acet 1% Eye Drop] 1 drop LEFT EYE BID 12/25/18 [History] guaiFENesin 400 mg PO BID PRN 12/25/18 [History] Atorvastatin [Lipitor] 20 mg PO HS #30 tab 12/28/18 [Rx] Ipratropium Nebulized [Atrovent Nebulized 0.2 MG/ML] 0.5 mg INHALATION Q6HR PRN 04/02/19 [History] Montelukast [Singulair] 10 mg PO HS 04/02/19 [History] Warfarin [Coumadin] 3 mg PO SUTUWEFRSA 04/02/19 [History] Warfarin [Coumadin] 4.5 mg PO MOTH 04/02/19 [History] Follow up Appointment(s)/Referral(s): oRxana Krishnan MD [STAFF PHYSICIAN] - 1 Week Kala Meehan NPC [Nurse Practitioner] - 1-2 Days [facility], [NON-STAFF] - Beverly Rodriguez MD [STAFF PHYSICIAN] - 1 Week
[2019-04-05 12:14] LABS: Glucose,Whole Blood 94 mg/dL (75-99)
--- NOTE | 2019-04-05 12:18 | CDI ---
Documentation Clarification Form Date: 04/05/2019 12:04:34 PM From: Eladia Donato RN, CCDS Admit Date: 04/02/2019 4:49:00 PM Patient Name: Corey Lopez Visit Number: [id number] Discharge Date: ATTENTION: The Clinical Documentation Specialists (CDI) and [facility] Coding Staff appreciate your assistance in clarifying documentation. Please respond to the clarification below the line at the bottom and electronically sign. The CDI & [facility] Coding staff will review the response and follow-up if needed. Please note: Queries are made part of the Legal Health Record. If you have any questions, please contact the author of this message via ITS. Dr. Tanya Akers/Dr.Chad Rodriguez Atrial Fibrillation is documented in the H&P and ongoing progress notes and further clarification is needed. History/Risk Factors: CKD stage III, Chronic diastolic CHF, Atrial fibrillation, Diabetes mellitus, hypertension, Clinical Indicators: 84-year-old male who present to ED related to abnormal labs. His past medical history includes atrial fib with current ongoing treatment. EKG/telemetry: Ventricular -paced rhythm Treatment: Telemetry monitoring Coumadin PO per orders Monitor INR In your professional opinion, can you please clarify the type of Atrial Fibrillation, if known? Chronic/Permanent Paroxysmal Persistent Other, please specify Unable to determine (Last Revision: January 2018) MTDD
--- NOTE | 2019-04-05 23:13 | PN ---
PROGRESS NOTE Patient is seen for followup for acute kidney injury which was mainly prerenal. He was maintained on IV fluids initially which are now discontinued. Serum creatinine continues to improve slightly every day. It is down to 1.93 with previous creatinine as low as 1.3 on 01/26/2019. Currently patient is off of diuretics and antihypertensive medications. Particularly, angiotensin receptor blockers. PHYSICAL EXAMINATION: On examination, blood pressure was 135/79, heart rate of 72 per minute. He is afebrile. Examination of the heart S1, S2. Examination of the lungs, bilateral breath sounds are heard. Abdomen is soft, nontender. Exam of lower extremities shows no edema. [employer] exam is grossly intact. LAB: Show sodium 142, potassium 4.3, chloride 108, BUN 30, serum creatinine 1.93. ASSESSMENT: 1. Acute kidney injury, prerenal, currently slowly improving. 2. Volume depletion, improved. Continue to hold off on diuretics for now. 3. Chronic kidney disease stage 3. Previous creatinine 1.1-1.3 mg/dL, mostly nephrosclerosis. 4. Hypotension which was hypovolemic. 5. Hyperkalemia associated with acute kidney injury and use of potassium supplementation, now resolved. 6. Atrial fibrillation with controlled ventricular response. 7. History of diastolic heart failure. PLAN: Continue off of MYNOR inhibitor/angiotensin receptor blockers and diuretics for now. Patient will need close monitoring as outpatient for volume management. We may need to resume diuretics depending upon his volume status as outpatient. MMODL / IJN: [id number] /
== END 2019-04-05 13:19 | disposition home health service (06) | DRG 683 ==
LOC: EC 14:25 → 3SCARD 16:49 → 4SSUR 04-04 20:39
PROVIDERS: ADMIT Internal Medicine; ATTEND Internal Medicine
DX: N17.9 Acute kidney failure, unspecified (principal); I13.0 Hypertensive heart and chronic kidney disease with heart failure and stage 1 through stage 4 chronic kidney disease, or unspecified chronic kidney disease; I50.32 Chronic diastolic (congestive) heart failure; E87.5 Hyperkalemia; E86.0 Dehydration; E78.5 Hyperlipidemia, unspecified; E86.1 Hypovolemia; G25.81 Restless legs syndrome; I25.10 Atherosclerotic heart disease of native coronary artery without angina pectoris; J45.909 Unspecified asthma, uncomplicated; K21.9 Gastro-esophageal reflux disease without esophagitis; M19.90 Unspecified osteoarthritis, unspecified site; M48.00 Spinal stenosis, site unspecified; H81.10 Benign paroxysmal vertigo, unspecified ear; I95.9 Hypotension, unspecified; E11.22 Type 2 diabetes mellitus with diabetic chronic kidney disease; I48.91 Unspecified atrial fibrillation; N18.3 Chronic kidney disease, stage 3 (moderate); E11.649 Type 2 diabetes mellitus with hypoglycemia without coma; R79.1 Abnormal coagulation profile; Z87.891 Personal history of nicotine dependence; Z95.1 Presence of aortocoronary bypass graft; Z95.0 Presence of cardiac pacemaker; Z90.49 Acquired absence of other specified parts of digestive tract; Z98.42 Cataract extraction status, left eye; Z98.41 Cataract extraction status, right eye; Z86.718 Personal history of other venous thrombosis and embolism; Z82.49 Family history of ischemic heart disease and other diseases of the circulatory system; Z79.82 Long term (current) use of aspirin; Z79.899 Other long term (current) drug therapy; I25.2 Old myocardial infarction; Z79.01 Long term (current) use of anticoagulants
CPT/HCPCS: 36415; 76770; 80048; 80053; 81001; 83036; 83605; 83735; 85025; 85027; 85610; 85730; 93005; 94640; 94760; 96361; 96365; 96375; 99285

== ENCOUNTER 2020-04-09 03:54 | Emergency (ER) | payer MEDICARE, BC ==
--- NOTE | 2020-04-09 03:57 | ED ---
ENT HPI - General Stated complaint: nose bleed Time Seen by Provider: 04/09/20 03:55 Source: RN notes reviewed, old records reviewed Limitations: no limitations - History of Present Illness Initial comments: This is a 5-year-old male DF for evaluation of nosebleed. Patient persistent nosebleed tonight going on a few hours although upon arrival in emergency department patient's bleeding appears to have stopped. Patient does have no real history of nosebleed no prior procedures, denying active difficult blood thinners does occasionally also over from high blood pressure although blood pressure is fine here in the emergency department complaint: epistaxis -: hour(s) Location: nose Severity: mild Severity scale (1-10): 3 Consistency: intermittent, now resolved (Not currently bleeding) Improves with: pressure Worsens with: none Associated Symptoms: other (no complaints patient is not the week dizzy and lethargic) - Related Data Home Medications Medication Instructions Recorded Confirmed Aspirin 81 mg PO DAILY 06/13/14 04/02/19 Cholecalciferol [Vitamin D3 (25 2,000 unit PO DAILY 06/13/14 04/02/19 Mcg = 1000 Iu)] Hydrocodone/Acetaminophen [[place] 1 tab PO Q6H PRN 06/13/14 04/02/19 5-325] Omeprazole [PriLOSEC] 20 mg PO DAILY 06/13/14 04/02/19 Meclizine [Antivert] 25 mg PO BID 07/26/17 04/02/19 Metoprolol Tartrate 25 mg PO BID 07/26/17 04/02/19 traMADol HCL [Ultram] 50 mg PO Q6H PRN 07/26/17 04/02/19 Budesonide [Pulmicort] 0.5 mg INHALATION RT-BID 12/25/18 04/02/19 Gabapentin [Neurontin] 300 mg PO TID 12/25/18 04/02/19 Prednisolone Acetate/Pf 1 drop LEFT EYE BID 12/25/18 04/02/19 [Prednisolone Acet 1% Eye Drop] guaiFENesin 400 mg PO BID PRN 12/25/18 04/02/19 Ipratropium Nebulized [Atrovent 0.5 mg INHALATION Q6HR PRN 04/02/19 04/02/19 Nebulized 0.2 MG/ML] Montelukast [Singulair] 10 mg PO HS 04/02/19 04/02/19 Warfarin [Coumadin] 3 mg PO SUTUWEFRSA 04/02/19 04/02/19 Warfarin [Coumadin] 4.5 mg PO MOTH 04/02/19 04/02/19 Previous Rx's Medication Instructions Recorded Atorvastatin [Lipitor] 20 mg PO HS #30 tab 12/28/18 Allergies Allergy/AdvReac Type Severity Reaction Status Date / Time Penicillins Allergy Swelling Verified 04/02/19 16:20 Review of Systems ROS Statement: Those systems with pertinent positive or pertinent negative responses have been documented in the HPI. ROS Other: All systems not noted in ROS Statement are negative. Past Medical History Past Medical History: Atrial Fibrillation, Atrial Flutter, Asthma, Coronary Artery Disease (CAD), Heart Failure, Diabetes Mellitus, Deep Vein Thrombosis (DVT), Eye Disorder, GERD/Reflux, Hyperlipidemia, Hypertension, Myocardial Infarction (GA), Osteoarthritis (OA) Additional Past Medical History / Comment(s): ASTHMA CHILD. Chronic back pain. HX KIDNEY STONE X1. NEUROPATHY IN FEET. SPINAL STENOSIS L3-5. RLS. BPPV, L eye corneal collapse Last Myocardial Infarction Date:: 2003 History of Any Multi-Drug Resistant Organisms: None Reported Past Surgical History: Appendectomy, Coronary Bypass/CABG, Heart Catheterization, Orthopedic Surgery, Pacemaker Additional Past Surgical History / Comment(s): CARDIOVERSION. ORAL SURGERY. TRIPLE BYPASS 2003. CATARACTS. RT KNEE ARTHROSCOPY. BACK INJECTIONS AT [facility] epidural for pain control, Mulitple Lens eye surgery Past Anesthesia/Blood Transfusion Reactions: No Reported Reaction Type of Cardiac Device: Permanent Pacemaker Device Placement Date:: UNKNOWN Past Psychological History: No Psychological Hx Reported Smoking Status: Former smoker Past Alcohol Use History: Rare Additional Past Alcohol Use History / Comment(s): STARTED SMOKING AT AGE15, SMOKED 1 PPD THEN WENT TO PIPE, QUIT SMOKING IN 2003 Past Drug Use History: None Reported - Past Family History Mother Family Medical History: Dementia Additional Family Medical History / Comment(s): MOM AGE 94 -[place] General Exam General appearance: alert, in no apparent distress Head exam: Present: atraumatic, normocephalic, normal inspection Eye exam: Present: normal appearance, PERRL, EOMI. Absent: scleral icterus, conjunctival injection, periorbital swelling ENT exam: Present: normal exam, mucous membranes moist, other (No active bleeding currently noted patient given nasal clamp which appears to be working appropriately) Neck exam: Present: normal inspection. Absent: tenderness, meningismus, lymphadenopathy Respiratory exam: Present: normal lung sounds bilaterally. Absent: respiratory distress, wheezes, rales, rhonchi, stridor Cardiovascular Exam: Present: regular rate, normal rhythm, normal heart sounds. Absent: systolic murmur, diastolic murmur, rubs, gallop, clicks GI/Abdominal exam: Present: soft, normal bowel sounds. Absent: distended, tenderness, guarding, rebound, rigid Extremities exam: Present: normal inspection, full ROM, normal capillary refill. Absent: tenderness, pedal edema, joint swelling, calf tenderness Back exam: Present: normal inspection Neurological exam: Present: alert, oriented X3, CN II-XII intact Psychiatric exam: Present: normal affect, normal mood Skin exam: Present: warm, dry, intact, normal color. Absent: rash Course Vital Signs 04/09/20 04:05 Temperature 97.5 F L Pulse Rate 63 Respiratory 18 Rate Blood Pressure 125/65 O2 Sat by Pulse 98 Oximetry - Reevaluation(s) Reevaluation #1: Medical record is reviewed Denying to get packing at this time we'll just use nasal clamp return if symptoms worsen Patient's a [id number] stand and ambulate without difficulty or symptoms of near-syncope Medical Decision Making - Medical Decision Making 85 male DF for evaluation of epistaxis no significant intervention needed aside from nasal cramping and pressure patient can be discharged home Disposition Clinical Impression: Epistaxis Disposition: HOME SELF-CARE Condition: Good Instructions (If sedation given, give patient instructions): Nosebleed (ED) Is patient prescribed a controlled substance at d/c from ED?: No Referrals: Elmo Montero MD [Primary Care Provider] - 1-2 days
[2020-04-09 04:15] VITALS: BP 125/65; PULSE 63; RESP 18; TEMP 97.5
== END 2020-04-09 05:11 | disposition home or self-care (01) ==
LOC: EC 03:54
DX: R04.0 Epistaxis (principal); J45.909 Unspecified asthma, uncomplicated; I48.91 Unspecified atrial fibrillation; I25.10 Atherosclerotic heart disease of native coronary artery without angina pectoris; I11.9 Hypertensive heart disease without heart failure; K21.9 Gastro-esophageal reflux disease without esophagitis; I25.2 Old myocardial infarction; M19.90 Unspecified osteoarthritis, unspecified site; Z79.51 Long term (current) use of inhaled steroids; Z79.899 Other long term (current) drug therapy; Z79.01 Long term (current) use of anticoagulants; Z88.0 Allergy status to penicillin; Z87.891 Personal history of nicotine dependence; Z95.5 Presence of coronary angioplasty implant and graft; Z95.0 Presence of cardiac pacemaker; Z95.1 Presence of aortocoronary bypass graft
CPT/HCPCS: 99283